=== PATIENT | female | born 1945 | race Caucasian/White ===

== ENCOUNTER → 2016-06-14 | Day surgery (SDC) | payer OTHER ==
[2016-05-13 10:06] VITALS: Ht 165.1 cm; Wt 116.4 kg
[~2016-06-14] VITALS: Ht 165.1 cm; Wt 116.4 kg
[~2016-06-14] MED LIST: 500ML BSS 0.3ML EPI 1:1000PF IRRIG ONE; ACETAMINOPHEN 325 MG TAB PO PRN; AMVISC PLUS 0.8ML SYRINGE INT OCU ONE; BSS FLUSH ONE; CITA40TA4 PO; CYCLOPENTOLATE HCL 1% OP SOLN PER DROP CHARGE OPL SCH; EYE DROP OPL; EpINEphrine INJ 1MG/ML AMP 1 MG/ML AMP ONE; GABA1CAP PO; GATIFLOXACIN OP SOLN PER DROP CHARGE OPL SCH; GLC/500 PO; KETOROLAC 0.5% OP SOLN PER DROP CHARGE OPL SCH; LACTATED RINGER'S 1000ML 500 ML IV SCH; LEVO100T7 PO; LIDOCAINE 3.5% OPH GEL PER APPLICATION CHARGE ONE; LIDOCAINE HCL 1% MPF 2 ML VIAL ONE; LISI20TA3 PO; MIDAZOLAM HCL 1 MG/ML 2ML VIAL ONE; MULT-506 PO; OCUCOAT 1 ML SOLN IO ONE; PHENYLEPHRINE HCL 10% OP SOLN PER DROP CHARGE OPL SCH; PHENYLEPHRINE HCL 2.5% OP SOLN PER DROP CHARGE OPL SCH; POVIDONE-IODINE OP SOLN 30 ML BTL ONE; PRED1SUS OPL; PROPARACAINE 0.5% OP SOLN PER DROP CHARGE OPL SCH; RISP1TAB68 PO; SIMV20TA2 PO; SULI150T PO; TOBRAMYCIN/DEXAMETHASONE OPH OINT PER APPLN CHARGE ONE; TROPICAMIDE 1% OP SOLN PER DROP CHARGE OPL SCH
[2016-06-14] MEDS: PHENYLEPHRINE HCL 2.5% OP SOLN PER DROP CHARGE OPL SCH ×2 (07:26→07:31)
[2016-06-14] MEDS: TROPICAMIDE 1% OP SOLN PER DROP CHARGE OPL SCH ×2 (07:27→07:32)
[2016-06-14] MEDS: CYCLOPENTOLATE HCL 1% OP SOLN PER DROP CHARGE OPL SCH ×2 (07:28→07:33)
[2016-06-14] MEDS: KETOROLAC 0.5% OP SOLN PER DROP CHARGE OPL SCH ×2 (07:29→07:34)
[2016-06-14] MEDS: GATIFLOXACIN OP SOLN PER DROP CHARGE OPL SCH ×2 (07:30→07:40)
--- NOTE | 2016-06-14 07:50 | History & Physical Bridge - [place] ---
H&P Re-Evaluation Bridge Note: I have examined the patient, reviewed the History & Physical and in the interval since the performance of the History & Physical I have noted the following changes of clinical significance: No changes noted
--- NOTE | 2016-06-14 08:28 | Discharge Instructions-SurgCtr ---
Discharge Instructions Date of Service Jun 14, 2016. Visit Reason for Visit: Cataract Left Eye Discharge Discharge Diagnosis / Problem: cataract Discharge Goals Goal(s): Improve function Medications Stopped Medications Name(s): Metformin stopped x 48 hrs. Activity Recommendations Activity Limitations: per Instructions/Follow-up section Anesthesia . Post Anesthesia Instructions: If you have had General Anesthesia or IV Sedation: * Do not drive today. * Resume driving when surgeon permits. * Do not make important decisions or sign legal documents today. * Call surgeon for: 1. Temperature elevations greater than 101 degrees F. 2. Uncontrollable pain. 3. Excessive bleeding. 4. Persistent nausea and vomiting. 5. Medication intolerance (nausea, vomiting or rash). * For nausea and vomiting use only clear liquids such as: tea, soda, bouillon until nausea subsides, then gradually increase diet as tolerated. * If you have any concerns or questions, call your surgeon's office. If physician is unavailable and it is an emergency, call 911 or go to the nearest emergency room. . Instructions / Follow-Up Instructions / Follow-Up ACTIVITY RECOMMENDATIONS: * No strenuous lifting, jogging or running for 4 days * No swimming or yard work for 1 week. * Limited bending is permitted, such as putting on shoes. RETURN TO SCHOOL/WORK: No work until seen by physician in office. MEDICATIONS: Resume previous medications unless instructed otherwise by your surgeon. This includes eye drops for glaucoma. Zymaxid/Gatifloxacin (rangel cap) - one drop every 2 hours until bedtime Nevanac/Ilevro/Prolensa/Ketorolac (diehl cap) - one drop every 4 hours until bedtime Prednisolone (white/pink cap, SHAKE WELL) - one drop every 2 hours until bedtime Starting tomorrow - all 3 drops every 4 hours until seen in the office Optive drops - as needed for discomfort SPECIAL CARE INSTRUCTIONS: * Wear eyeshield when sleeping, for four nights. * You may wear your own glasses or sunglasses while awake. * You may read or watch TV * You may shower and wash your face, but be gentle around the eye and pat dry. * Blurry vision and mild irritation are normal. * Call office if pain is more severe or vision becomes dark at . FOLLOW UP VISIT: Follow-up with Dr Arreola tomorrow. Diet Recommendations Home Diet: resume previous diet Procedures Procedures Performed: Left Cataract Phacoemulsification With Intraocular Lens Implant Pending Studies Studies pending at discharge: no Medical Emergencies . Who to Call and When: Medical Emergencies: If at any time you feel your situation is an emergency, please call 911 immediately. . Non-Emergent Contact Non-Emergency issues call your: Occupational Therapy Teacher . . "Provider Documentation" section prepared by Cesar Arreola.
--- NOTE | 2016-06-14 08:29 | [facility] Operative Report ---
Operative Report Date of Service Jun 14, 2016. Operative Report 1. PREOPERATIVE DIAGNOSIS: Cataract of the left eye. 2. POSTOPERATIVE DIAGNOSIS: Same. 3. PROCEDURE: Phacoemulsification with intraocular lens implantation of the left eye. SURGEON: Dr. Cesar Arreola. ANESTHESIA: Topical Lidocaine gel, 1% Non- Preserved intracameral Lidocaine, and monitored intravenous sedation. INDICATIONS FOR THE PROCEDURE: The patient is a 70 - year-old female with a history of cataract of the left eye causing significant visual impairment. The details of the proposed procedure were explained to the patient who asked appropriate questions and following discussion of all risks, benefits and alternatives agreed to have the procedure done. 4. OPERATION AND FINDINGS: DESCRIPTION OF PROCEDURE: After informed consent was obtained, the patient was brought to the Operating Room at the [facility]. The patient was placed in a supine position and then the left eye was prepped and draped in the usual sterile fashion for intraocular surgery. A drop of topical Lidocaine gel was placed in the operative eye. A wire lid speculum was then placed in the fornices. A corneal paracentesis was then created temporally. The Non-Preserved Lidocaine was then instilled into the anterior chamber. The anterior chamber was then pressurized with viscoelastic. A 2.0 mm clear corneal incision was then created temporally. A cystotome was inserted into the anterior chamber and used to create a tear in the anterior lens capsule. This capsular tear was then used to create a small flap and the flap was dragged in a counterclockwise direction in order to create a continuous curvilinear capsulorrhexis. Hydrodissection was accomplished with balanced salt solution. Phacoemulsification of the lens nucleus was then performed in a standard [id number] technique. The phaco time was 26 seconds with an average power of 12 %. The remaining cortical material was removed using irrigation aspiration. The capsular bag was then filled with viscoelastic. A Bausch & Lomb MI60L +20.0 diopters lens was then loaded into the injector and injected into the capsular bag. The remaining viscoelastic was removed with the irrigation aspiration handpiece. The wound was hydrated and then checked and found to be watertight. The intraocular pressure was checked and found to be adequate. The wire lid speculum was removed and the patient's face was cleaned and dried. TobraDex ointment was placed in the inferior fornix. The patient was discharged to the Recovery Room having tolerated the procedure well. There were no complications. The patient will be seen tomorrow in the office for follow-up. I attest to the content of the Intraoperative Record and any orders documented therein. Any exceptions are noted below.
[2016-06-14 08:32] VITALS: TEMP 36.5
--- NOTE | 2016-06-14 08:52 | Anesthesia Progress Nt - [facility] ---
Anesthesia Post Op Note Date & Time Jun 14, 2016 at 08:52 Vital Signs Pain Intensity: 0 Vital Signs Past 12 Hours Date Time Temp Pulse Resp B/P Pulse Ox O2 Delivery O2 Flow Rate FiO2 06/14/16 08:32 36.5 91 16 123/85 98 Room Air 06/14/16 07:05 36.6 114 20 133/84 95 Room Air Notes Mental Status: alert / awake / arousable, participated in evaluation Pt Amnestic to Procedure: No Nausea / Vomiting: adequately controlled Pain: adequately controlled Airway Patency, RR, SpO2: stable & adequate BP & HR: stable & adequate Hydration State: stable & adequate Anesthetic Complications: no major complications apparent Pt doing well. Recall as expected.
[2016-06-14 09:05] VITALS: BP 129/66; PULSE 77; O2SAT 96
== END | disposition home or self-care (01) ==
LOC: X.SURG 06:54
PROVIDERS: ATTEND Ophthalmology
DX: H26.9 Unspecified cataract (principal); E11.9 Type 2 diabetes mellitus without complications

== ENCOUNTER → 2016-07-19 | Day surgery (SDC) | payer OTHER ==
[2016-06-29 10:12] VITALS: Ht 165.1 cm; Wt 116.4 kg
[~2016-07-19] VITALS: Ht 165.1 cm; Wt 116.4 kg
[~2016-07-19] MED LIST changes: -CYCLOPENTOLATE HCL 1% OP SOLN PER DROP CHARGE OPL SCH; -GATIFLOXACIN OP SOLN PER DROP CHARGE OPL SCH; -KETOROLAC 0.5% OP SOLN PER DROP CHARGE OPL SCH; -PHENYLEPHRINE HCL 10% OP SOLN PER DROP CHARGE OPL SCH; +PHENYLEPHRINE HCL 10% OP SOLN PER DROP CHARGE OPR SCH; -PHENYLEPHRINE HCL 2.5% OP SOLN PER DROP CHARGE OPL SCH; -PROPARACAINE 0.5% OP SOLN PER DROP CHARGE OPL SCH; +PROPARACAINE 0.5% OP SOLN PER DROP CHARGE OPR SCH; -TROPICAMIDE 1% OP SOLN PER DROP CHARGE OPL SCH
[2016-07-19] MEDS: PHENYLEPHRINE HCL 2.5% OP SOLN PER DROP CHARGE OPR SCH ×2 (09:31→09:36)
[2016-07-19] MEDS: TROPICAMIDE 1% OP SOLN PER DROP CHARGE OPR SCH ×2 (09:32→09:37)
[2016-07-19] MEDS: KETOROLAC 0.5% OP SOLN PER DROP CHARGE OPR SCH ×2 (09:33→09:38)
[2016-07-19] MEDS: CYCLOPENTOLATE HCL 1% OP SOLN PER DROP CHARGE OPR SCH ×2 (09:33→09:37)
[2016-07-19] MEDS: GATIFLOXACIN OP SOLN PER DROP CHARGE OPR SCH ×2 (09:34→09:44)
--- NOTE | 2016-07-19 10:30 | Discharge Instructions-SurgCtr ---
Discharge Instructions Date of Service July 19, 2016. Visit Reason for Visit: Cataract Right Eye Discharge Discharge Diagnosis / Problem: cataract Discharge Goals Goal(s): Improve function Medications Stopped Medications Name(s): Metformin hekld for 48 HRs Activity Recommendations Activity Limitations: per Instructions/Follow-up section Anesthesia . Post Anesthesia Instructions: If you have had General Anesthesia or IV Sedation: * Do not drive today. * Resume driving when surgeon permits. * Do not make important decisions or sign legal documents today. * Call surgeon for: 1. Temperature elevations greater than 101 degrees F. 2. Uncontrollable pain. 3. Excessive bleeding. 4. Persistent nausea and vomiting. 5. Medication intolerance (nausea, vomiting or rash). * For nausea and vomiting use only clear liquids such as: tea, soda, bouillon until nausea subsides, then gradually increase diet as tolerated. * If you have any concerns or questions, call your surgeon's office. If physician is unavailable and it is an emergency, call 911 or go to the nearest emergency room. . Instructions / Follow-Up Instructions / Follow-Up ACTIVITY RECOMMENDATIONS: * No strenuous lifting, jogging or running for 4 days * No swimming or yard work for 1 week. * Limited bending is permitted, such as putting on shoes. RETURN TO SCHOOL/WORK: No work until seen by physician in office. MEDICATIONS: Resume previous medications unless instructed otherwise by your surgeon. This includes eye drops for glaucoma. Zymaxid/Gatifloxacin (rangel cap) - one drop every 2 hours until bedtime Nevanac/Ilevro/Prolensa/Ketorolac (diehl cap) - one drop every 4 hours until bedtime Prednisolone (white/pink cap, SHAKE WELL) - one drop every 2 hours until bedtime Starting tomorrow - all 3 drops every 4 hours until seen in the office Optive drops - as needed for discomfort SPECIAL CARE INSTRUCTIONS: * Wear eyeshield when sleeping, for four nights. * You may wear your own glasses or sunglasses while awake. * You may read or watch TV * You may shower and wash your face, but be gentle around the eye and pat dry. * Blurry vision and mild irritation are normal. * Call office if pain is more severe or vision becomes dark at . FOLLOW UP VISIT: Follow-up with Dr Arreola tomorrow. Diet Recommendations Home Diet: resume previous diet Procedures Procedures Performed: Right Cataract Phacoemulsification With Intraocular Lens Implant Pending Studies Studies pending at discharge: no Medical Emergencies . Who to Call and When: Medical Emergencies: If at any time you feel your situation is an emergency, please call 911 immediately. . Non-Emergent Contact Non-Emergency issues call your: Biological Science Technician Fish . . "Provider Documentation" section prepared by Cesar Arreola. .
--- NOTE | 2016-07-19 10:31 | [facility] Operative Report ---
Operative Report Date of Service July 19, 2016. Operative Report 1. PREOPERATIVE DIAGNOSIS: Cataract of the right eye. 2. POSTOPERATIVE DIAGNOSIS: Same. 3. PROCEDURE: Phacoemulsification with intraocular lens implantation of the right eye. SURGEON: Dr. Cesar Arreola. ANESTHESIA: Topical Lidocaine gel, 1% Non- Preserved intracameral Lidocaine, and monitored intravenous sedation. INDICATIONS FOR THE PROCEDURE: The patient is a 71 - year-old female with a history of cataract of the right eye causing significant visual impairment. The details of the proposed procedure were explained to the patient who asked appropriate questions and following discussion of all risks, benefits and alternatives agreed to have the procedure done. 4. OPERATION AND FINDINGS: DESCRIPTION OF PROCEDURE: After informed consent was obtained, the patient was brought to the Operating Room at the [facility]. The patient was placed in a supine position and then the right eye was prepped and draped in the usual sterile fashion for intraocular surgery. A drop of topical Lidocaine gel was placed in the operative eye. A wire lid speculum was then placed in the fornices. A corneal paracentesis was then created temporally. The Non-Preserved Lidocaine was then instilled into the anterior chamber. The anterior chamber was then pressurized with viscoelastic. A 2.0 mm clear corneal incision was then created temporally. A cystotome was inserted into the anterior chamber and used to create a tear in the anterior lens capsule. This capsular tear was then used to create a small flap and the flap was dragged in a counterclockwise direction in order to create a continuous curvilinear capsulorrhexis. Hydrodissection was accomplished with balanced salt solution. Phacoemulsification of the lens nucleus was then performed in a standard efhwrr-pff-weowyeh technique. The phaco time was 24 seconds with an average power of 10 %. The remaining cortical material was removed using irrigation aspiration. The capsular bag was then filled with viscoelastic. A Bausch & Lomb MI60L +19.5 diopters lens was then loaded into the injector and injected into the capsular bag. The remaining viscoelastic was removed with the irrigation aspiration handpiece. The wound was hydrated and then checked and found to be watertight. The intraocular pressure was checked and found to be adequate. The wire lid speculum was removed and the patient's face was cleaned and dried. TobraDex ointment was placed in the inferior fornix. The patient was discharged to the Recovery Room having tolerated the procedure well. There were no complications. The patient will be seen tomorrow in the office for follow-up. I attest to the content of the Intraoperative Record and any orders documented therein. Any exceptions are noted below.
--- NOTE | 2016-07-19 10:42 | Anesthesia Progress Nt - [facility] ---
Anesthesia Post Op Note Date & Time July 19, 2016 at 10:43 Vital Signs Pain Intensity: 0 Vital Signs Past 12 Hours Date Time Temp Pulse Resp B/P Pulse Ox O2 Delivery O2 Flow Rate FiO2 07/19/16 10:31 36.9 76 16 117/76 96 Room Air 07/19/16 09:10 36.3 104 20 167/93 96 Room Air Notes Mental Status: alert / awake / arousable, participated in evaluation Pt Amnestic to Procedure: No (recall as expected) Nausea / Vomiting: adequately controlled Pain: adequately controlled Airway Patency, RR, SpO2: stable & adequate BP & HR: stable & adequate Hydration State: stable & adequate Anesthetic Complications: no major complications apparent Pt doing well.
[2016-07-19 10:56] VITALS: BP 134/83; PULSE 65; O2SAT 98
== END | disposition home or self-care (01) ==
LOC: X.SURG 08:43
PROVIDERS: ATTEND Ophthalmology
DX: H26.9 Unspecified cataract (principal); E11.9 Type 2 diabetes mellitus without complications

== ENCOUNTER → 2016-08-12 | Outpatient (CLI) | payer OTHER ==
[~2016-08-12] MED LIST changes: -500ML BSS 0.3ML EPI 1:1000PF IRRIG ONE; -ACETAMINOPHEN 325 MG TAB PO PRN; -AMVISC PLUS 0.8ML SYRINGE INT OCU ONE; -BSS FLUSH ONE; -EpINEphrine INJ 1MG/ML AMP 1 MG/ML AMP ONE; -LACTATED RINGER'S 1000ML 500 ML IV SCH; -LIDOCAINE 3.5% OPH GEL PER APPLICATION CHARGE ONE; -LIDOCAINE HCL 1% MPF 2 ML VIAL ONE; -MIDAZOLAM HCL 1 MG/ML 2ML VIAL ONE; -OCUCOAT 1 ML SOLN IO ONE; -PHENYLEPHRINE HCL 10% OP SOLN PER DROP CHARGE OPR SCH; -POVIDONE-IODINE OP SOLN 30 ML BTL ONE; -PROPARACAINE 0.5% OP SOLN PER DROP CHARGE OPR SCH; -TOBRAMYCIN/DEXAMETHASONE OPH OINT PER APPLN CHARGE ONE
[2016-08-12 12:20] LABS: HEMATOCRIT 43.1 % (37-47); MEAN CELL VOLUME 94.9 fL (80-100); MEAN CORPUSCULAR HEMOGLOBIN 30.2 pg (25-34); MEAN CORPUSCULAR HGB CONC 31.8 g/dl (32-36); MEAN PLATELET VOLUME 10.7 fL (7.4-10.4); PLATELET COUNT 333 K/uL (130-400); RED BLOOD COUNT 4.54 M/uL (4.2-5.4); WHITE BLOOD COUNT 8.17 K/uL (4.8-10.8)
[2016-08-12 12:26] LABS: ESTIMATED AVERAGE GLUCOSE 140 mg/dl; HA1C FLAG Normal (Normal)
[2016-08-12 12:37] LABS: BLOOD UREA NITROGEN 23 mg/dl (7-18); BUN/CREATININE RATIO 20.5 (10-20); CARBON DIOXIDE 24 mmol/L (21-32); CHLORIDE 104 mmol/L (98-107); GLUCOSE 114 mg/dl (70-99); POTASSIUM 4.3 mmol/L (3.5-5.1); SODIUM 139 mmol/L (136-145)
[2016-08-12 12:41] LABS: CHOLESTEROL/HDL RATIO 3.3
[2016-08-12 12:44] LABS: CALCIUM 9.4 mg/dl (8.5-10.1)
[2016-08-12 12:47] LABS: THYROID STIMULATING HORMONE 2.43 uIu/ml (0.300-4.500); URIC ACID 8.3 mg/dl (2.6-7.2)
== END | disposition home or self-care (01) ==
LOC: C.LAB 10:30
PROVIDERS: ATTEND Psychiatry & Neurology Psychiatry
DX: Z79.899 Other long term (current) drug therapy (principal); I10 Essential (primary) hypertension; E03.9 Hypothyroidism, unspecified; E11.9 Type 2 diabetes mellitus without complications; M10.9 Gout, unspecified; E78.5 Hyperlipidemia, unspecified; M19.90 Unspecified osteoarthritis, unspecified site

== ENCOUNTER → 2017-01-23 | Outpatient (CLI) | payer OTHER ==
--- NOTE | 2017-01-24 07:43 | MAMMOGRAPHY REPORT ---
BILATERAL DIGITAL SCREENING MAMMOGRAM WITH CAD: 01/23/2017 CLINICAL HISTORY: Routine screening. Patient has no complaints. TECHNIQUE: Bilateral CC, MLO and repeat right MLO views were obtained. Current study was also evalua sourav with a Computer Aided Detection (CAD) system. COMPARISON: Comparison is made to exams dated: 01/22/2016 mammogram, 01/20/2015 mammogram, 01/14/2014 mammogram, 01/11/2013 mammogram, 12/20/2011 mammogram, and 11/11/2010 mammogram - [facility]. BREAST COMPOSITION: There are scattered areas of fibroglandular density in both breasts. FINDINGS: The parenchymal pattern is unchanged. No developing mass, architectural distortion or clus ter of suspicious microcalcifications is seen in either breast. IMPRESSION: ACR BI-RADS CATEGORY 2: BENIGN There is no mammographic evidence of malignancy. A 1 year screening mammogram is recommended. The pa tient will receive written notification of the results. Approximately 10% of breast cancers are not detected with mammography. A negative mammographic report should not delay biopsy if a clinically suggestive mass is present. Shelia Cardoza M.D. ay/:01/23/2017 15:30:22 Meteorological Observer: Christi VALDEZR, M, [facility] letter sent: Normal 1/2 BI-RADS Code: ACR BI-RADS Category 2: Benign
== END | disposition home or self-care (01) ==
LOC: C.MAMM 11:15
PROVIDERS: ATTEND Internal Medicine Geriatric Medicine
DX: Z12.31 Encounter for screening mammogram for malignant neoplasm of breast (principal)

== ENCOUNTER 2021-08-14 20:11 | Inpatient (IN) ==
--- NOTE | 2021-08-14 20:57 | Emergency Department Note ---
Impression & Plan Generalized weakness, Hypomagnesemia ED Provider Note Name: ANTONETTE BOWMAN Age: 76 Sex: F Arrives Via: Ambulance Informant: Patient, EMS, nursing ED Provider: Kevin Remy MD Chief Complaint: Weakness Impression: As per impressions above Medical Decision Makin-year-old female with extensive past medical history who arrives following sliding off of her couch and unable to get up. Apparently she has been gradually worsening for quite some time. Patient is somewhat unkempt at this point slightly confused. Apparently she was quite agitated and anxious when EMS arrived and she was actually given Ativan which explain some of the confusion. Regardless given the fall I did think that getting a CT of the head is reasonable which is fortunately negative. Extensive work-up in mild WBC elevation though no fever and no clear evidence of infection. There is nitrates in her urine but this is a clean-catch and I do not see any clear evidence that it is infected. The rest of her laboratory work-up is remarkable for significantly low magnesium. This may be part of the reason that she is so weak. I suspect there is an element of malnutrition as well. I discussed the case at length with hospitalist who will evaluate and bring her in for further management. Prior Medical Record and Triage/Nursing Notes reviewed by Me Additional history obtained from chart Differentials:Infection, dehydration, metabolic abnormality, hypo/hyperglycemia, electrolyte disturbance, anemia, hypoxia, cardiac sources, intracerebral event, toxicologic, neurologic, as well as other pathologies. Vital Signs: reviewed and remarkable for no significant abnormalities Interventions: Normal saline bolus, magnesium IV Labs:Reviewed and remarkable for hypomagnesemia Imaging:CT of the head no acute findings per radiology, 1 view chest x-ray no acute findings EKG:Per My Interpretation: Indication weakness: NSR 88 bpm, qtc 454. No Ectopy. No Ischemia. Compared to EKG 05/16/06, no significant changes. Consults:Dr. Schwartz of [facility] hospitalist service Plan: Disposition:Hospitalization. Condition: Good History of Present Illness:76-year-old female arrives for evaluation of weakness. Patient was sitting on her couch when she slid off it. 911 was called. She notes she got very anxious and worked up. Per EMS she was severely anxious on arrival and given Ativan. In route symptoms resolved. Patient states she feels much better. She denies any chest pain, shortness of breath, abdominal pain, back pain, urinary symptoms, leg swelling, rashes, fevers, chills, headache, neck pain or any other signs or symptoms. She took no medications prior to arrival other than the Ativan that was given to her. Patient states she feels safe at home and lives with her [id number]. She notes sometimes she cooks and oftentimes her [id number] does. She says she feels like she can live there without problems. She admits that she got very worked up today. She denies any other concerning findings. ROS: See above HPI for pertinent positives & negatives. A total of 10 systems reviewed and were otherwise negative. Past Medical History:See Below Past Surgical History:See Below Family History:See Below Social History:See Below Home Medications:See Below Allergies:nkda Vitals:Blood Pressure: 127/75, Pulse 94, RR 16, T 36.5C, O2 99% on RA Physical Exam: GENERAL: Patient is well appearing and in no acute distress. Mildly dehydrated appearing EYES: No scleral icterus, unremarkable pupils. ENT: Mucous membranes moist, no nasal congestion. NECK: No masses appreciated, nomeningismus, trachea is midline. RESPIRATORY: No dyspnea. Clear to auscultation and equal bilaterally. No wheeze, no rhonchi. CARDIOVASCULAR: Regular rate and rhythm.No murmurs, rubs, gallops appreciated. GASTROINTESTINAL: Abdomen soft, non-tender, no peritonitis.Bowel sounds positive.No masses appreciated. BACK: No midline tenderness, no CVA tenderness EXTREMITIES: Normal motion all extremities, no cyanosis, no edema. NEUROLOGIC: Alert and oriented, mildly somnolent no acute motor or sensory deficits, no focal weakness, cranial nerves grossly intact. SKIN: No rash, no jaundice, no diaphoresis. PSYCH: Appropriate GCS: 15 ED Course: Times/Reassessments: Patient agreeable to hospitalization breathing comfortably in no distress. Mild confusion slowly resolving Kevin Remy MD Past Med/Surg History Medical History Carpal tunnel syndrome Chronic kidney disease Depression Dyslipidemia Gastroesophageal reflux disease Gout Hypertension Hypothyroidism Joint pain, knee Osteoarthritis Type 2 diabetes mellitus Surgical History Hx of cholecystectomy Family History Mother Cervical cancer Uncle Myocardial infarction Other No significant family history Denies family history of Ovarian cancer Prostate cancer Breast cancer Lung cancer Colorectal cancer Social History Smoking Status: Unknown if ever smoked Second Hand Exposure: No; Hx Substance Use: No Preferred Language: Syriac Communication Ability: Effective Visual Impairment: Limited Hearing Ability: Normal 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 lives w/ sister, Merle Small current occupational status: retired How many Children do You have: 0 Feels Safe at Home: Yes Childhood Exposure to Second-Hand Smoke: Yes caffeine: Yes Dental Care, Regularly: Yes Physical Activity Frequency: Does not Exercise Seatbelt Use: always Sunscreen Use: No Assistive Devices: Walker Allergies Allergies Allergy/AdvReac Type Severity Reaction Status Date / Time No Known Allergies Allergy Unknown Verified 08/14/21 21:21 Home Meds Home Medications Medication Instructions Recorded Confirmed citalopram 20 mg tablet 30 mg PO HS tab 10/24/18 08/14/21 multivitamin (Daily Multi-Vitamin) 1 tab PO DAILY 10/24/18 08/14/21 risperidone 1 mg tablet 1 mg PO HS tab 10/24/18 08/14/21 Previous Rx's Medication Instructions Recorded gabapentin 300 mg capsule 300 mg PO DAILY #30 cap 07/30/19 lisinopril 20 mg tablet 20 mg PO DAILY #90 tab 11/09/20 metformin 500 mg tablet 750 mg PO BID #270 tab 03/15/21 levothyroxine 100 mcg tablet 100 mcg PO DAILY #90 tab 05/03/21 simvastatin 20 mg tablet 20 mg PO DAILY #90 tab 07/28/21 Results & Data (ED) Vital Signs Vital Signs - 24 hr 08/14/21 20:32 08/14/21 21:00 08/14/21 22:32 Temperature 36.5 C Temperature Source Axillary Pulse Rate 94 H 85 84 Pulse Rate from SpO2 Sensor 86 Respiratory Rate 27 H 22 27 H Respiratory Effort / Characteristics Spontaneous Blood Pressure 127/75 165/79 H Blood Pressure Mean 92 107 Pulse Oximetry 99 96 98 Oxygen Delivery Method Room Air Room Air Room Air Sepsis New/Unexplained Change in Mental Status N/A Sepsis Action Taken by Nursing No Action Required Laboratory Data Result diagrams: 08/15/21 05:42 08/15/21 05:42 Lab Results 08/14/21 08/14/21 08/14/21 Range/Units 21:06 21:06 21:06 WBC 14.69 H (4.8-10.8) K/uL RBC 3.84 L (4.2-5.4) M/uL Hgb 12.2 (12.0-16.0) g/dL Hct 35.6 L (37-47) % MCV 92.7 (80-100) fL MCH 31.8 (25-34) pg MCHC 34.3 (32-36) g/dL RDW Std Deviation 47.2 H (36.4-46.3) fL RDW Coeff of [place] 13.8 (11.5-14.5) % Plt Count 391 (130-400) K/uL MPV 11.6 H (7.4-10.4) fL Immature Gran % (Auto) 0.3 % Neut % (Auto) 76.6 % Lymph % (Auto) 14.6 % [place] % (Auto) 7.9 % Eos % (Auto) 0.5 % Baso % (Auto) 0.1 % Neut # (Auto) 11.25 H (1.4-6.5) K/uL Lymph # (Auto) 2.14 (1.2-3.4) K/uL [place] # (Auto) 1.16 H (0.11-0.59) K/uL Eos # (Auto) 0.07 (0-0.5) K/uL Baso # (Auto) 0.02 (0-0.2) K/uL Immature Gran # (Auto) 0.05 H (0.00-0.02) K/uL Sodium 136 (136-145) mmol/L Potassium 2.8 L (3.5-5.1) mmol/L Chloride 102 (98-107) mmol/L Carbon Dioxide 19 L (21-32) mmol/L Anion Gap 15 H (3-11) BUN 14 (6-23) mg/dl Creatinine 1.07 (0.6-1.2) mg/dl Est Cr Clr Drug Dosing 54.2 ml/min Est GFR ( Amer) 59.2 ml/min Est GFR (Non-Af Amer) 51.1 ml/min BUN/Creatinine Ratio 13.1 (10-20) Glucose 148 H (70-99(Fasting)) mg/dl Calcium 7.7 L (8.5-10.1) mg/dl Phosphorus (2.5-4.9) mg/dl Magnesium 0.9 L* (1.7-2.4) mg/dl Total Bilirubin 1.3 H (0.2-1.0) mg/dl Direct Bilirubin 0.3 H (0-0.2) mg/dl AST 52 H (13-39) U/L ALT 17 (7-52) U/L Alkaline Phosphatase 76 (34-104) U/L Troponin I High Sens 15.2 H (0-14) pg/ml Total Protein 6.1 (6.0-8.3) gm/dl Albumin 3.1 L (3.4-5.0) gm/dl TSH 7.318 H (0.300-4.500) uIu/ml Urine Color Urine Appearance (Clear) Urine pH (4.5-7.5) Ur Specific [place] (1.000-1.030) Urine Protein (Negative) Urine Glucose (UA) (Negative) Urine Ketones (Negative) Urine Blood (Negative) Urine Nitrite (Negative) Urine Bilirubin (Negative) Urine Urobilinogen (Negative) Ur Leukocyte Esterase (Negative) Urine WBC (Auto) (0-5) /hpf Urine RBC (Auto) (0-4) /hpf U Hyaline Cast (Auto) (0-5) /lpf U Epithel Cells (Auto) (0-5) /lpf Urine Bacteria (Auto) (Negative) SARS-CoV-2, RNA, NAAT (NEGATIVE) 08/14/21 08/14/21 08/14/21 Range/Units 21:06 21:55 22:59 WBC (4.8-10.8) K/uL RBC (4.2-5.4) M/uL Hgb (12.0-16.0) g/dL Hct (37-47) % MCV (80-100) fL MCH (25-34) pg MCHC (32-36) g/dL RDW Std Deviation (36.4-46.3) fL RDW Coeff of [place] (11.5-14.5) % Plt Count (130-400) K/uL MPV (7.4-10.4) fL Immature Gran % (Auto) % Neut % (Auto) % Lymph % (Auto) % [place] % (Auto) % Eos % (Auto) % Baso % (Auto) % Neut # (Auto) (1.4-6.5) K/uL Lymph # (Auto) (1.2-3.4) K/uL [place] # (Auto) (0.11-0.59) K/uL Eos # (Auto) (0-0.5) K/uL Baso # (Auto) (0-0.2) K/uL Immature Gran # (Auto) (0.00-0.02) K/uL Sodium (136-145) mmol/L Potassium (3.5-5.1) mmol/L Chloride (98-107) mmol/L Carbon Dioxide (21-32) mmol/L Anion Gap (3-11) BUN (6-23) mg/dl Creatinine (0.6-1.2) mg/dl Est Cr Clr Drug Dosing ml/min Est GFR ( Amer) ml/min Est GFR (Non-Af Amer) ml/min BUN/Creatinine Ratio (10-20) Glucose (70-99(Fasting)) mg/dl Calcium (8.5-10.1) mg/dl Phosphorus 1.7 L (2.5-4.9) mg/dl Magnesium (1.7-2.4) mg/dl Total Bilirubin (0.2-1.0) mg/dl Direct Bilirubin (0-0.2) mg/dl AST (13-39) U/L ALT (7-52) U/L Alkaline Phosphatase (34-104) U/L Troponin I High Sens (0-14) pg/ml Total Protein (6.0-8.3) gm/dl Albumin (3.4-5.0) gm/dl TSH (0.300-4.500) uIu/ml Urine Color [place] Urine Appearance Clear (Clear) Urine pH 5.0 (4.5-7.5) Ur Specific [place] 1.029 (1.000-1.030) Urine Protein 1+ H (Negative) Urine Glucose (UA) Negative (Negative) Urine Ketones Negative (Negative) Urine Blood Negative (Negative) Urine Nitrite Positive A (Negative) Urine Bilirubin 1+ H (Negative) Urine Urobilinogen Negative (Negative) Ur Leukocyte Esterase Trace H (Negative) Urine WBC (Auto) 1-5 (0-5) /hpf Urine RBC (Auto) 5-10 H (0-4) /hpf U Hyaline Cast (Auto) 0 (0-5) /lpf U Epithel Cells (Auto) 5-10 H (0-5) /lpf Urine Bacteria (Auto) Negative (Negative) SARS-CoV-2, RNA, NAAT NEGATIVE (NEGATIVE) Administered Medications Calcium Carbonate (Calcium Carbonate 1,250 Mg/5 Ml Udc) 1,250 mg PO BID [facility] Stop: 09/14/21 08:59 Last Admin: 08/15/21 08:44 Dose: 1,250 mg Documented by: [id number] Cyanocobalamin (Cyanocobalamin 1000 Mcg/Ml Vial) 1,000 mcg IM QAM [facility] Stop: 08/19/21 09:01 Last Admin: 08/15/21 10:33 Dose: 1,000 mcg Documented by: [id number] Enoxaparin Sodium (Enoxaparin Inj 40 Mg/0.4 Ml Syr) 40 mg SQ QAM [facility] Stop: 09/14/21 09:44 Last Admin: 08/15/21 10:33 Dose: 40 mg Documented by: [id number] Gabapentin (Gabapentin 300 Mg Cap) 300 mg PO DAILY [facility] Stop: 09/14/21 08:59 Last Admin: 08/15/21 08:10 Dose: 300 mg Documented by: [id number] Ceftriaxone Sodium 2,000 mg/ (Dextrose) 70 mls @ 100 mls/hr IV Q24H [facility]; Protocol Stop: 08/20/21 01:59 Last Infusion: 08/15/21 02:50 Dose: 0 mls/hr Documented by: [id number] Admin: 08/15/21 02:08 Dose: 100 mls/hr Documented by: [id number] Magnesium Sulfate 6 gm/ (Lactated Ringer's) 1,012 mls @ 80 mls/hr IV .[id number] [facility] Stop: 08/15/21 14:38 Last Admin: 08/15/21 02:08 Dose: 80 mls/hr Documented by: [id number] Insulin Aspart (Insulin Aspart Per Unit) 0 units SC ACHS [facility] Stop: 09/14/21 07:29 Last Admin: 08/15/21 12:43 Dose: 2 units Documented by: [id number] Cosigned by: [id number] Admin: 08/15/21 08:09 Dose: 3 units Documented by: [id number] Cosigned by: [id number] Levothyroxine Sodium (Levothyroxine Sodium 100 Mcg Tablet) 100 mcg PO DAILYBB [facility] Stop: 09/14/21 06:29 Last Admin: 08/15/21 05:48 Dose: 100 mcg Documented by: [id number] Lisinopril (Lisinopril 20 Mg Tab) 20 mg PO DAILY [facility] Stop: 09/14/21 08:59 Last Admin: 08/15/21 08:10 Dose: 20 mg Documented by: [id number] Simvastatin (Simvastatin 20 Mg Tab) 20 mg PO DAILY [facility] Stop: 09/14/21 08:59 Last Admin: 08/15/21 08:10 Dose: 20 mg Documented by: [id number] Discontinued Medications Magnesium Sulfate/Dextrose (Magnesium Sulfate / D5w) 1 gm in 100 mls @ 100 mls/hr IV NOW STA Stop: 08/14/21 23:45 Last Infusion: 08/15/21 00:04 Dose: 0 mls/hr Documented by: [id number] Admin: 08/14/21 23:03 Dose: 100 mls/hr Documented by: [id number] Sodium Phosphate 12 mmol/ (Sodium Chloride) 254 mls @ 88 mls/hr IV ONE ONE Stop: 08/15/21 04:53 Last Infusion: 08/15/21 05:49 Dose: 0 mls/hr Documented by: [id number] Admin: 08/15/21 02:50 Dose: 88 mls/hr Documented by: [id number] Lorazepam (Lorazepam 0.5 Mg Tab) 0.5 mg PO NOW STA Stop: 08/15/21 07:53 Last Admin: 08/15/21 08:09 Dose: 0.5 mg Documented by: [id number] Potassium Chloride (Potassium Chloride Crtab 20 Meq Tabcr) 60 meq PO NOW STA Stop: 08/14/21 23:49 Last Admin: 08/14/21 23:52 Dose: 60 meq Documented by: [id number] Potassium Chloride (Potassium Chloride Crtab 20 Meq Tabcr) 40 meq PO NOW STA Stop: 08/15/21 07:49 Last Admin: 08/15/21 08:09 Dose: 40 meq Documented by: [id number] Discharge Plan Visit Data Chief Complaint: Fall Stated Complaint: Fall, Anxiety ED Provider: Kevin Remy Discharge Problem: Generalized weakness, Hypomagnesemia Patient Disposition: Admitted As Inpatient Discharge Instructions Interventions: ED Discharge Assessment Last Done: 08/15/21 00:45
[2021-08-14 21:42] LABS: Basophils # (auto) 0.02 K/uL (0-0.2); Basophils % (auto) 0.1 %; Eosinophils # (auto) 0.07 K/uL (0-0.5); Eosinophils % (auto) 0.5 %; Hematocrit (blood only) 35.6 % (37-47); Hemoglobin 12.2 g/dL (12.0-16.0); Immature Granulocytes # (auto) 0.05 K/uL (0.00-0.02); Immature Granulocytes % (auto) 0.3 %; Lymphocytes # (auto) 2.14 K/uL (1.2-3.4); Lymphocytes % (auto) 14.6 %; Mean Corpuscular Hemoglobin 31.8 pg (25-34); Mean Corpuscular Hgb Conc 34.3 g/dL (32-36); Mean Corpuscular Volume 92.7 fL (80-100); Mean Platelet Volume 11.6 fL (7.4-10.4); Monocytes # (auto) 1.16 K/uL (0.11-0.59); Monocytes % (auto) 7.9 %; Neutrophils # (auto) 11.25 K/uL (1.4-6.5); Neutrophils % (auto) 76.6 %; Platelet Count 391 K/uL (130-400); RDW Coefficient of Variation 13.8 % (11.5-14.5); RDW Standard Deviation 47.2 fL (36.4-46.3); Red Blood Count 3.84 M/uL (4.2-5.4); White Blood Count 14.69 K/uL (4.8-10.8)
[2021-08-14 21:50] LABS: Troponin I High Sensitivity 15.2 pg/ml (0-14)
--- NOTE | 2021-08-14 21:53 | CT Scan Report ---
CT head/brain wo con CLINICAL HISTORY: 76 years-old Female with fall, weakness. Acute head injury status post fall with w eakness. TECHNIQUE: Multiple axial CT images of the head were obtained without contrast. A dose lowering tech nique was utilized adhering to the principles of ALARA. CT DOSE: 614.27 mGy.cm COMPARISON: None. FINDINGS: No acute intracranial hemorrhage, midline shift, intracranial mass, hydrocephalus, territorial ischem ia or abnormal extra-axial collection. Calcifications of the falx cerebri. Involutional changes with white matter hypodensities suggestive of chronic microvascular ischemic disease. Mildly motion degrad ed exam. The calvarium is intact. Prior bilateral lens repair. The paranasal sinuses, mastoid air cells, and m iddle ear cavities are clear. IMPRESSION: No acute intracranial abnormality or calvarial fracture. ACT 112: Negative or not required by law. The above report was generated using voice recognition software. It may contain grammatical, syntax o r spelling errors. Electronically signed by: Bernardo Malagon M.D. 08/14/2021 9:51 PM
--- NOTE | 2021-08-14 21:57 | XRay Report ---
XR chest 1V portable HISTORY: 76 years-old Female fall, weakness acute weakness with fall COMPARISON: Chest radiographs 05/16/2006 TECHNIQUE: Portable AP view of the chest FINDINGS: The cardiomediastinal and hilar silhouettes are within normal limits. No pneumothorax, pleural effusi on, airspace consolidation or overt pulmonary edema. Degenerative changes of the shoulders and spine. IMPRESSION: No acute process. ACT 112: Negative or not required by law. The above report was generated using voice recognition software. It may contain grammatical, syntax o r spelling errors. Electronically signed by: Bernardo Malagon M.D. 08/14/2021 9:56 PM
[2021-08-14 22:07] LABS: BUN Creatinine Ratio 13.1 (10-20); Calcium 7.7 mg/dl (8.5-10.1); Creatinine Clr Calc Pharmacy 54.2 ml/min; Est GFR (African American) 59.2 ml/min; Est GFR (Non-African American) 51.1 ml/min; Potassium 2.8 mmol/L (3.5-5.1)
[2021-08-14 22:10] LABS: Appearance Urine Clear (Clear); Bacteria Urine Automated Negative (Negative); Blood Urine Negative (Negative); Cast Urine Automated 0 /lpf (0-5); Color Urine Orange; Glucose Urine UA Negative (Negative); Ketones Urine Negative (Negative); Leukocyte Esterase Urine Trace (Negative); Nitrite Urine Positive (Negative); Protein Urine 1+ (Negative); Specific Gravity Urine 1.029 (1.000-1.030); Urobilinogen Urine Negative (Negative)
[2021-08-14 22:28] LABS: Albumin Level 3.1 gm/dl (3.4-5.0); Bilirubin Direct 0.3 mg/dl (0-0.2); Bilirubin,Total 1.3 mg/dl (0.2-1.0); Magnesium 0.9 mg/dl (1.7-2.4); Total Protein 6.1 gm/dl (6.0-8.3)
[2021-08-14 22:41] LABS: Bilirubin Urine 1+ (Negative)
[2021-08-14] MEDS ORDERED: MAGNESIUM SULFATE / D5W 1 GM/100 ML BAG IV STA (22:46)
[2021-08-14] MEDS ORDERED: POTASSIUM CHLORIDE CRTAB 20 MEQ TABCR PO STA (23:48)
--- NOTE | 2021-08-14 23:50 | History & Physical Report ---
Date of Service August 14, 2021 Assessment & Plan (1) Electrolyte abnormality: Plan: 76yo female with history of CKD, HTN, DM, Gout and Hypothyroidism presenting from home with generalized weakness. Found to have severe hypomagnesemia with Mg=0.9. Also with hypokalemia and hypophosphatemia with K=2.8 and PO4=1.7. Patient reports that she is eating well, although family member at bedside disagrees with this statement. She denies vomiting, diarrhea. She is not pre sently on PPI medication. -Admit to medical with telemetry -Electrolyte repletion - Mg 1gm given in ER. Will continue repletion with 6gm Mg in 1L LR to be given at 80mL/hr. Repeat chemistry and Mg in AM - KCl 60mEq po given in ER. Repeat chemistry in AM - Neutraphos x 12mMol with repeat PO4 in AM - Additional repletion per AM labs -Check pre-albumin in AM for nutritional assessment -PT/OT evaluation (2) Memory change: Plan: Patient with report of memory change discussed during prior PCP visits. Thought possibly to be secondary to underlying depression. She has a mini cognitive test report from 07/28/20 score 0/5. Possibly underlying cognitive impairment or dementia. Uncertain of baseline functional status. Will treat electrolyte derangements, UTI then reassess cognitive function -Continue Risperidone 1mg po qHS -Frequent orientation, delirium prevention strategies (3) UTI (urinary tract infection): Plan: Possible UTI, nitrite positive. Patient afebrile, HD stable, nontoxic -Ceftriaxone 1gm IV daily -Urine culture ordered (4) Type 2 diabetes mellitus: Plan: Blood sugar =148. Overall well controlled - last [id number]=2.3 on 07/08/20 -Hold Metformin while inpatient -ISS. Goal blood sugar 100 - 140 (5) Hypothyroidism: Plan: Elevated TSH. Uncertain medication adherence -Continue Synthroid 100mcg daily (6) Hypertension: Plan: Chronic. Elevated at 165/79 -Continue Lisinopril -Continue to monitor (7) Dyslipidemia: Plan: Chronic. -Continue Simvastatin 20mg po daily (8) Depression: Plan: Chronic -Continue Citalopram Plan: F/E/N - Electrolyte repletion as above, CC diet Ppx - SCDs Code - Full per discussion with patient Dispo - Admit to medical with telemetry History of Present Illness Chief Complaint: weakness Primary Care Provider: Drake Chilel DO Kristine Novoa is a 76yo female with history of HTN, HLP, GERD, DM and Hypothyroidism with weakness. Patient is a poor historian and doesn't full recollect the events prior to arrival. She lives with her sister who assists her with medications and ADLs. Patient had a fall yesterday secondary to some weakness. Today she fell in her living room and was unable to get up due to weakness. Her cousin had to assist her in getting up. She then became very anxious. 911 was called. In the ER patient afebrile, HD stable, tachypneic. She has no complaints at this time. Denies pain, chest pain, cough, abdominal pain, nausea, vomiting, diarrhea or constipation. She states that she does have some shortness of breath at times. Also complaining of pain in the right great toe. ER Course: Mag x 1gm, KCL x 60mEq Allergies Allergy/AdvReac Type Severity Reaction Status Date / Time No Known Allergies Allergy Unknown Verified 08/14/21 21:21 Home Medications Medication Instructions Recorded Confirmed Type citalopram 20 mg tablet 30 mg PO HS tab 10/24/18 08/14/21 History multivitamin (Daily Multi-Vitamin) 1 tab PO DAILY 10/24/18 08/14/21 History risperidone 1 mg tablet 1 mg PO HS tab 10/24/18 08/14/21 History gabapentin 300 mg capsule 300 mg PO DAILY #30 cap 07/30/19 08/14/21 Rx lisinopril 20 mg tablet 20 mg PO DAILY #90 tab 11/09/20 08/14/21 Rx metformin 500 mg tablet 750 mg PO BID #270 tab 03/15/21 08/14/21 Rx levothyroxine 100 mcg tablet 100 mcg PO DAILY #90 tab 05/03/21 08/14/21 Rx simvastatin 20 mg tablet 20 mg PO DAILY #90 tab 07/28/21 08/14/21 Rx Past Med/Surg History Medical History Carpal tunnel syndrome Chronic kidney disease Depression Dyslipidemia Gastroesophageal reflux disease Gout Hypertension Hypothyroidism Joint pain, knee Osteoarthritis Type 2 diabetes mellitus Surgical History Hx of cholecystectomy Family History Mother Cervical cancer Uncle Myocardial infarction Other No significant family history Denies family history of Ovarian cancer Prostate cancer Breast cancer Lung cancer Colorectal cancer Social History Smoking Status: Never smoker Second Hand Exposure: No; Hx Alcohol Use: No Hx Substance Use: No Preferred Language: Iraqi Communication Ability: Effective Visual Impairment: Limited Hearing Ability: Normal 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 marital status: Current Living Situation: Family current occupational status: retired How many Children do You have: 0 Feels Safe at Home: Yes Childhood Exposure to Second-Hand Smoke: Yes caffeine: Yes Dental Care, Regularly: Yes Physical Activity Frequency: Does not Exercise Seatbelt Use: always Sunscreen Use: No Review of Systems Review of Systems: All systems reviewed & are unremarkable except as noted in HPI & below Physical Exam Physical Exam: General: patient resting comfortably, NAD, ill in appearance, disheveled and poorly kempt Skin: warm, dry, intact, no rashes or lesions HEENT: NC/AT, PERRL, EOMI, anicteric sclera, conjunctiva without injection, external ear normal to inspection and nontender, nares patent, DRY mucus membranes, poor dentition and oral hygiene, no oropharyngeal lesions, neck supple, trachea midline, no LAD, no thyromegaly, no JVD Heart: +S1/S2, regular, no m/r/g Lungs: equal air entry bilaterally, no rales/rhonchi/wheezes Abd: +BS, soft, NT/ND, no masses/organomegaly/ascites Ext: warm, 2+ pulses in UE/LE bilaterally, no clubbing/cyanosis or edema Neuro: nonfocal, patient answering questions and following commands, oriented to self and hospital, speech intact, no facial droop, moving all extremities on command with generalized weakness 4/5 strength in UE/LE bilaterally Results & Data Results & Data ([facility]) Vital Signs (Past 12 Hours) Vital Signs Temp Pulse Resp BP Pulse Ox 08/14/21 22:32 84 27 H 165/79 H 98 08/14/21 21:00 85 22 96 08/14/21 20:32 36.5 C 94 H 27 H 127/75 99 Laboratory Results Laboratory Results WBC 14.69 K/uL (4.8-10.8) H 08/14/21 21:06 RBC 3.84 M/uL (4.2-5.4) L 08/14/21 21:06 Hgb 12.2 g/dL (12.0-16.0) 08/14/21 21:06 Hct 35.6 % (37-47) L 08/14/21 21:06 MCV 92.7 fL (80-100) 08/14/21 21:06 MCH 31.8 pg (25-34) 08/14/21 21:06 MCHC 34.3 g/dL (32-36) 08/14/21 21:06 RDW Std Deviation 47.2 fL (36.4-46.3) H 08/14/21 21:06 RDW Coeff of [place] 13.8 % (11.5-14.5) 08/14/21 21:06 Plt Count 391 K/uL (130-400) 08/14/21 21:06 MPV 11.6 fL (7.4-10.4) H 08/14/21 21:06 Immature Gran % (Auto) 0.3 % 08/14/21 21:06 Neut % (Auto) 76.6 % 08/14/21 21:06 Lymph % (Auto) 14.6 % 08/14/21 21:06 [place] % (Auto) 7.9 % 08/14/21 21:06 Eos % (Auto) 0.5 % 08/14/21 21:06 Baso % (Auto) 0.1 % 08/14/21 21:06 Neut # (Auto) 11.25 K/uL (1.4-6.5) H 08/14/21 21:06 Lymph # (Auto) 2.14 K/uL (1.2-3.4) 08/14/21 21:06 [place] # (Auto) 1.16 K/uL (0.11-0.59) H 08/14/21 21:06 Eos # (Auto) 0.07 K/uL (0-0.5) 08/14/21 21:06 Baso # (Auto) 0.02 K/uL (0-0.2) 08/14/21 21:06 Immature Gran # (Auto) 0.05 K/uL (0.00-0.02) H 08/14/21 21:06 Sodium 136 mmol/L (136-145) 08/14/21 21:06 Potassium 2.8 mmol/L (3.5-5.1) L 08/14/21 21:06 Chloride 102 mmol/L (98-107) 08/14/21 21:06 Carbon Dioxide 19 mmol/L (21-32) L 08/14/21 21:06 Anion Gap 15 (3-11) H 08/14/21 21:06 BUN 14 mg/dl (6-23) 08/14/21 21:06 Creatinine 1.07 mg/dl (0.6-1.2) 08/14/21 21:06 Est Cr Clr Drug Dosing 54.2 ml/min 08/14/21 21:06 Est GFR ( Amer) 59.2 ml/min 08/14/21 21:06 Est GFR (Non-Af Amer) 51.1 ml/min 08/14/21 21:06 BUN/Creatinine Ratio 13.1 (10-20) 08/14/21 21:06 Glucose 148 mg/dl (70-99(Fasting)) H 08/14/21 21:06 Calcium 7.7 mg/dl (8.5-10.1) L 08/14/21 21:06 Phosphorus 1.7 mg/dl (2.5-4.9) L 08/14/21 21:06 Magnesium 0.9 mg/dl (1.7-2.4) L* 08/14/21 21:06 Total Bilirubin 1.3 mg/dl (0.2-1.0) H 08/14/21 21:06 Direct Bilirubin 0.3 mg/dl (0-0.2) H 08/14/21 21:06 AST 52 U/L (13-39) H 08/14/21 21:06 ALT 17 U/L (7-52) 08/14/21 21:06 Alkaline Phosphatase 76 U/L (34-104) 08/14/21 21:06 Troponin I High Sens 15.2 pg/ml (0-14) H 08/14/21 21:06 Total Protein 6.1 gm/dl (6.0-8.3) 08/14/21 21:06 Albumin 3.1 gm/dl (3.4-5.0) L 08/14/21 21:06 TSH 7.318 uIu/ml (0.300-4.500) H 08/14/21 21:06 Urine Color [place] 08/14/21 21:55 Urine Appearance Clear (Clear) 08/14/21 21:55 Urine pH 5.0 (4.5-7.5) 08/14/21 21:55 Ur Specific [place] 1.029 (1.000-1.030) 08/14/21 21:55 Urine Protein 1+ (Negative) H 08/14/21 21:55 Urine Glucose (UA) Negative (Negative) 08/14/21 21:55 Urine Ketones Negative (Negative) 08/14/21 21:55 Urine Blood Negative (Negative) 08/14/21 21:55 Urine Nitrite Positive (Negative) A 08/14/21 21:55 Urine Bilirubin 1+ (Negative) H 08/14/21 21:55 Urine Urobilinogen Negative (Negative) 08/14/21 21:55 Ur Leukocyte Esterase Trace (Negative) H 08/14/21 21:55 Urine WBC (Auto) 1-5 /hpf (0-5) 08/14/21 21:55 Urine RBC (Auto) 5-10 /hpf (0-4) H 08/14/21 21:55 U Hyaline Cast (Auto) 0 /lpf (0-5) 08/14/21 21:55 U Epithel Cells (Auto) 5-10 /lpf (0-5) H 08/14/21 21:55 Urine Bacteria (Auto) Negative (Negative) 08/14/21 21:55 SARS-CoV-2, RNA, NAAT NEGATIVE (NEGATIVE) 08/14/21 22:[address] 08/14/21 20:54 CT head/brain wo con CLINICAL HISTORY: 76 years-old Female with fall, weakness. Acute head injury status post fall with weakness. TECHNIQUE: Multiple axial CT images of the head were obtained without contrast. A dose lowering technique was utilized adhering to the principles of ALARA. CT DOSE: 614.27 mGy.cm COMPARISON: None. FINDINGS: No acute intracranial hemorrhage, midline shift, intracranial mass, hydrocephalus, territorial ischemia or abnormal extra-axial collection. Calcifications of the falx cerebri. Involutional changes with white matter hypodensities suggestive of chronic microvascular ischemic disease. Mildly motion degraded exam. The calvarium is intact. Prior bilateral lens repair. The paranasal sinuses, mastoid air cells, and middle ear cavities are clear. IMPRESSION: No acute intracranial abnormality or calvarial fracture. ACT 112: Negative or not required by law. The above report was generated using voice recognition software. It may contain grammatical, syntax or spelling errors. Electronically signed by: Bernardo Malagon M.D. 08/14/2021 9:51 PM Chest X-Ray 08/14/21 20:55 XR chest 1V portable HISTORY: 76 years-old Female fall, weakness acute weakness with fall COMPARISON: Chest radiographs 05/16/2006 TECHNIQUE: Portable AP view of the chest FINDINGS: The cardiomediastinal and hilar silhouettes are within normal limits. No pneumothorax, pleural effusion, airspace consolidation or overt pulmonary edema. Degenerative changes of the shoulders and spine. IMPRESSION: No acute process. ACT 112: Negative or not required by law. The above report was generated using voice recognition software. It may contain grammatical, syntax or spelling errors. Electronically signed by: Bernardo Malagon M.D. 08/14/2021 9:56 PM ECG Additional Comments: EKG with NSR at 88, IU=493, QRS=82, PFp=823, nonspecific ST changes, no acute ischemia Code Status & VTE Plan VTE Prophylaxis Plan VTE Prophylaxis will be ordered: Yes PG Care Time/CCT Total # of Minutes Spent Total Time Spent with Patient: Total time spent is greater than 50% in coordination of care (as documented) at patient's floor/unit and/or counseling patient: Coding Level of Care Code 52912 Initial Inpt Care Lvl 3 Diagnoses Memory change R41.3 Type 2 diabetes mellitus E11.9 Hypothyroidism E03.9 Hypertension I10 Dyslipidemia E78.5 Depression F32.9 Electrolyte abnormality E87.8 UTI (urinary tract infection) N39.0
[2021-08-15] MEDS ORDERED: SODIUM PHOSPHATE 3 MMOL/1 ML INFUSION IV STA (00:19)
[2021-08-15] MEDS ORDERED: CARBOHYDRATES FOR HYPOGLYCEMIA PO PRN (01:20)
[2021-08-15] MEDS ORDERED: GLUCOSE 10 TABS/TUBE PO PRN (01:20)
[2021-08-15] MEDS ORDERED: GLUCAGON FOR INJ 1 MG VIAL SQ PRN (01:20)
[2021-08-15] MEDS ORDERED: DEXTROSE 50% 50 ML SYRINGE IV PRN (01:20)
[2021-08-15] MEDS ORDERED: GLUCOSE 40% GEL 15 GM TUBE PO PRN (01:20)
[2021-08-15] MEDS ORDERED: LACTATED RINGER S IV SCH (02:00)
[2021-08-15] MEDS ORDERED: MAGNESIUM SULFATE IV SCH (02:00)
[2021-08-15] MEDS ORDERED: SODIUM PHOSPHATE 12 MMOL in SODIUM CHLORIDE 0.9% 250 ML IV ONE (02:00)
[2021-08-15] MEDS: cefTRIAXone SODIUM 2,000 MG in DEXTROSE 5% 50 ML IV SCH (02:08)
[2021-08-15 02:58] LABS: Phosphorus 1.7 mg/dl (2.5-4.9)
[2021-08-15 03:03] LABS: Troponin I High Sensitivity 17.5 pg/ml (0-14)
[2021-08-15] MEDS: LEVOTHYROXINE SODIUM 100 MCG TABLET PO SCH (05:48)
[2021-08-15 06:01] LABS: Basophils # (auto) 0.04 K/uL (0-0.2); Basophils % (auto) 0.3 %; Eosinophils # (auto) 0.12 K/uL (0-0.5); Hematocrit (blood only) 34.2 % (37-47); Hemoglobin 11.5 g/dL (12.0-16.0); Immature Granulocytes # (auto) 0.05 K/uL (0.00-0.02); Immature Granulocytes % (auto) 0.4 %; Lymphocytes # (auto) 2.74 K/uL (1.2-3.4); Mean Corpuscular Hemoglobin 30.8 pg (25-34); Mean Corpuscular Hgb Conc 33.6 g/dL (32-36); Mean Corpuscular Volume 91.7 fL (80-100); Mean Platelet Volume 11.1 fL (7.4-10.4); Monocytes # (auto) 1.13 K/uL (0.11-0.59); Monocytes % (auto) 9.1 %; Neutrophils # (auto) 8.39 K/uL (1.4-6.5); Neutrophils % (auto) 67.2 %; Platelet Count 387 K/uL (130-400); RDW Coefficient of Variation 13.9 % (11.5-14.5); RDW Standard Deviation 45.7 fL (36.4-46.3); Red Blood Count 3.73 M/uL (4.2-5.4); White Blood Count 12.47 K/uL (4.8-10.8)
[2021-08-15 07:09] LABS: Albumin Level 2.9 gm/dl (3.4-5.0); BUN Creatinine Ratio 13.5 (10-20); Bilirubin Direct 0.3 mg/dl (0-0.2); Bilirubin,Total 1.1 mg/dl (0.2-1.0); Calcium 7.3 mg/dl (8.5-10.1); Creatinine Clr Calc Pharmacy 58.9 ml/min; Est GFR (African American) 67.5 ml/min; Est GFR (Non-African American) 58.3 ml/min; Magnesium 1.9 mg/dl (1.7-2.4); Potassium 3.2 mmol/L (3.5-5.1); Total Protein 5.6 gm/dl (6.0-8.3)
[2021-08-15 07:43] LABS: Prealbumin 10.7 mg/dl (20-40)
[2021-08-15] MEDS ORDERED: POTASSIUM CHLORIDE CRTAB 20 MEQ TABCR PO STA (07:48)
[2021-08-15] MEDS ORDERED: LORazepam 0.5 MG TAB PO STA (07:52)
--- NOTE | 2021-08-15 07:58 | Hospitalist Progress Note ---
Date of Service August 15, 2021 Assessment & Plan (1) Electrolyte abnormality: Plan: 76yo female with history of CKD, HTN, DM, Gout and Hypothyroidism presenting from home with generalized weakness and falls at home. Found to have severe hypomagnesemia with Mg=0.9. Also with hypokalemia and hypophosphatemia with K=2.8 and PO4=1.7. Patient reports that she is eating well, although family member at bedside disagrees with this statement. She denies vomiting, diarrhea. She is not presently on PPI medication. Monitor on telemetry -Admit to medical with telemetry -Electrolyte repletion - Mg 1gm given in ER. Will continue repletion with 6gm Mg in 1L LR to be given at 80mL/hr. Repeat chemistry and Mg in AM - KCl 60mEq po given in ER. Repeat chemistry in AM - Neutraphos x 12mMol with repeat PO4 in AM - Additional repletion per AM labs -Check pre-albumin in AM for nutritional assessment -PT/OT evaluation 6/5 Pre-albumin low, suggestive of not eating well at home (patient reported eating well, family disagreed on admit). Will consult nutrition for assessment/supplementations Mag 0.9, ordered 6mg in 1L LR --> 1.9 on repeat K 2.8, replacement ordered and repeat 3.2, will order additional 40meq po x 1 now Neutraphos ordered Anion gap improved 15-->12, suspect from GI losses n/v and electrolyte abn Calcium low, ionized low, ordered oral Calcium given on rocephin for possible UTI w/ weakness on admission however no bacteria, and suspect from severe electrolyte derangements TB elevated, will need to monitor n/v, although denied. In elderly w/ fall/weakness may consider RUQ US? No RUQ pain/n/v currently and will monitor AM labs Urine culture --> st cath this AM for foul smelling urine. On rocephin. Monitor cx PT/OT consults given likely need for inpatient rehab TSH elevated 7.318, however will need to inquire about compliance vs increasing usual Synthroid which is at 100mcg daily * States takes with all other medications and will continue current 100mcg dose and instructed to take in AM on empty stomach Labs in AM (2) Memory change: Plan: Patient with report of memory change discussed during prior PCP visits. Thought possibly to be secondary to underlying depression. She has a mini cognitive test report from 07/28/20 score 0/5. Possibly underlying cognitive impairment or dementia. Uncertain of baseline functional status. Will treat electrolyte derangements, UTI then reassess cognitive function -Continue Risperidone 1mg po qHS -Frequent orientation, delirium prevention strategies Will check B12 --LOW AND IM REPLACEMENT ORDERED, CONTINUE AT DISCHARGE. +NEUROPATHY B/L LE TSH elevated as above, continue usual synthroid but educated on compliance and recommend repeat testing with PCP outpatient (3) UTI (urinary tract infection): Plan: Possible UTI, nitrite positive. Patient afebrile, HD stable, nontoxic -Ceftriaxone 1gm IV daily -Urine culture ordered St cath this morning and will monitor cx (4) Type 2 diabetes mellitus: Plan: Blood sugar =148. Overall well controlled - last FztT4A=8.3 on 07/08/20 -Hold Metformin while inpatient -ISS. Goal blood sugar 100 - 140 (5) Hypothyroidism: Plan: Elevated TSH. NOT COMPLIANT WITH TAKING ON EMPTY STOMACH -Continue Synthroid 100mcg daily, repeat TFT outpatient (6) Hypertension: Plan: Chronic. Improved with IVF Continue lisinopril, BP 137/70 (7) Dyslipidemia: Plan: Chronic. -Continue Simvastatin 20mg po daily (8) Depression: Plan: Chronic -Continue Citalopram Plan: DVT prophylaxis: SCDs, will add Lovenox SQ given not as ambulatory PT/OT consults Continued electrolyte replacement Admission and Anticipated Discharge Date Admission Date: August 14, 2021 Subjective Patient evaluated this morning. States she is doing well. Less anxious Discussed PO intake at home -- she states she might not do very well. No on helps to prepare meals. Discussed medication/thyroid, she takes all medications together. Discussed will need to have this prior to other meds on empty stomach and will not increase the dose for current time. No fever/chills/chest pain/shortness of breath. EAting/drinking without issue, no problems with swallowing endorsed. No nausea or vomiting. Feeling like had to pee this morning and st cath for foul smelling urine and continue to tx/monitor urine culture and await therapy evals. Discussed rehab if needed based on therapy and will monitor how she does. Review of Systems Review of Systems: All systems reviewed & are unremarkable except as noted in HPI & below Physical Exam Physical Exam: General: patient resting comfortably, NAD, chronically ill in appearance, poorly kept, NAD Skin: warm, dry, ecchymosis to R shoulder HEENT: NC/AT, pupils equal/reactive, trachea midline, no deviation, poor dentition/oral hygeine, no JVD appreciated Heart: +S1/S2, regular, no m/r/g, non pitting edema Lungs: equal air entry bilaterally, no rales/rhonchi/wheezes, on room air Abd: +BS, soft, NT/ND, no masses/organomegaly/ascites Ext: warm, 2+ pulses in UE/LE bilaterally, no clubbing/cyanosis or edema Neuro: nonfocal, patient answering questions and following commands, oriented to self and hospital, speech intact, no facial droop, moving all extremities on command with generalized weakness 4/5 strength in UE/LE bilaterally, +NEUROPATHY Results & Data Results & Data ([facility]) Vital Signs (Past 12 Hours) Vital Signs Temp Pulse Pulse Resp BP BP Pulse Ox 08/15/21 06:45 36.4 C L 86 20 137/70 98 08/15/21 01:20 36.5 C 114 H 22 150/95 H 98 08/15/21 01:08 105 H 08/15/21 00:27 85 23 153/77 H 98 08/15/21 00:01 118 H 22 97 08/14/21 22:32 84 27 H 165/79 H 98 08/14/21 21:00 85 22 96 08/14/21 20:32 36.5 C 94 H 27 H 127/75 99 Laboratory Results 08/15/21 08/15/21 08/15/21 Range/Units 07:47 07:35 05:42 WBC (4.8-10.8) K/uL RBC (4.2-5.4) M/uL Hgb (12.0-16.0) g/dL Hct (37-47) % MCV (80-100) fL MCH (25-34) pg MCHC (32-36) g/dL RDW Std Deviation (36.4-46.3) fL RDW Coeff of [place] (11.5-14.5) % Plt Count (130-400) K/uL MPV (7.4-10.4) fL Immature Gran % (Auto) % Neut % (Auto) % Lymph % (Auto) % [place] % (Auto) % Eos % (Auto) % Baso % (Auto) % Neut # (Auto) (1.4-6.5) K/uL Lymph # (Auto) (1.2-3.4) K/uL [place] # (Auto) (0.11-0.59) K/uL Eos # (Auto) (0-0.5) K/uL Baso # (Auto) (0-0.2) K/uL Immature Gran # (Auto) (0.00-0.02) K/uL Sodium (136-145) mmol/L Potassium (3.5-5.1) mmol/L Chloride (98-107) mmol/L Carbon Dioxide (21-32) mmol/L Anion Gap (3-11) BUN (6-23) mg/dl Creatinine (0.6-1.2) mg/dl Est Cr Clr Drug Dosing ml/min Est GFR ( Amer) ml/min Est GFR (Non-Af Amer) ml/min BUN/Creatinine Ratio (10-20) Glucose (70-99(Fasting)) mg/dl POC Glucose 165 H (70-99) mg/dl Calcium (8.5-10.1) mg/dl Ionized Calcium (1.12-1.32) mmol/L Phosphorus (2.5-4.9) mg/dl Magnesium (1.7-2.4) mg/dl Total Bilirubin (0.2-1.0) mg/dl Direct Bilirubin (0-0.2) mg/dl AST (13-39) U/L ALT (7-52) U/L Alkaline Phosphatase (34-104) U/L Troponin I High Sens Pending (0-14) pg/ml Total Protein (6.0-8.3) gm/dl Albumin (3.4-5.0) gm/dl Prealbumin (20-40) mg/dl Vitamin B12 173 L (180-914) pg/ml TSH (0.300-4.500) uIu/ml Urine Color Urine Appearance (Clear) Urine pH (4.5-7.5) Ur Specific [place] (1.000-1.030) Urine Protein (Negative) Urine Glucose (UA) (Negative) Urine Ketones (Negative) Urine Blood (Negative) Urine Nitrite (Negative) Urine Bilirubin (Negative) Urine Urobilinogen (Negative) Ur Leukocyte Esterase (Negative) Urine WBC (Auto) (0-5) /hpf Urine RBC (Auto) (0-4) /hpf U Hyaline Cast (Auto) (0-5) /lpf U Epithel Cells (Auto) (0-5) /lpf Urine Bacteria (Auto) (Negative) SARS-CoV-2, RNA, NAAT (NEGATIVE) 08/15/21 08/15/21 08/15/21 Range/Units 05:42 05:42 01:59 WBC 12.47 H (4.8-10.8) K/uL RBC 3.73 L (4.2-5.4) M/uL Hgb 11.5 L (12.0-16.0) g/dL Hct 34.2 L (37-47) % MCV 91.7 (80-100) fL MCH 30.8 (25-34) pg MCHC 33.6 (32-36) g/dL RDW Std Deviation 45.7 (36.4-46.3) fL RDW Coeff of [place] 13.9 (11.5-14.5) % Plt Count 387 (130-400) K/uL MPV 11.1 H (7.4-10.4) fL Immature Gran % (Auto) 0.4 % Neut % (Auto) 67.2 % Lymph % (Auto) 22.0 % [place] % (Auto) 9.1 % Eos % (Auto) 1.0 % Baso % (Auto) 0.3 % Neut # (Auto) 8.39 H (1.4-6.5) K/uL Lymph # (Auto) 2.74 (1.2-3.4) K/uL [place] # (Auto) 1.13 H (0.11-0.59) K/uL Eos # (Auto) 0.12 (0-0.5) K/uL Baso # (Auto) 0.04 (0-0.2) K/uL Immature Gran # (Auto) 0.05 H (0.00-0.02) K/uL Sodium 138 (136-145) mmol/L Potassium 3.2 L (3.5-5.1) mmol/L Chloride 104 (98-107) mmol/L Carbon Dioxide 22 (21-32) mmol/L Anion Gap 12 H (3-11) BUN 13 (6-23) mg/dl Creatinine 0.96 (0.6-1.2) mg/dl Est Cr Clr Drug Dosing 58.9 ml/min Est GFR ( Amer) 67.5 ml/min Est GFR (Non-Af Amer) 58.3 ml/min BUN/Creatinine Ratio 13.5 (10-20) Glucose 137 H (70-99(Fasting)) mg/dl POC Glucose (70-99) mg/dl Calcium 7.3 L (8.5-10.1) mg/dl Ionized Calcium 0.98 L (1.12-1.32) mmol/L Phosphorus 4.0 D (2.5-4.9) mg/dl Magnesium 1.9 (1.7-2.4) mg/dl Total Bilirubin 1.1 H (0.2-1.0) mg/dl Direct Bilirubin 0.3 H (0-0.2) mg/dl AST 43 H (13-39) U/L ALT 13 (7-52) U/L Alkaline Phosphatase 73 (34-104) U/L Troponin I High Sens (0-14) pg/ml Total Protein 5.6 L (6.0-8.3) gm/dl Albumin 2.9 L (3.4-5.0) gm/dl Prealbumin 10.7 L (20-40) mg/dl Vitamin B12 (180-914) pg/ml TSH (0.300-4.500) uIu/ml Urine Color Urine Appearance (Clear) Urine pH (4.5-7.5) Ur Specific [place] (1.000-1.030) Urine Protein (Negative) Urine Glucose (UA) (Negative) Urine Ketones (Negative) Urine Blood (Negative) Urine Nitrite (Negative) Urine Bilirubin (Negative) Urine Urobilinogen (Negative) Ur Leukocyte Esterase (Negative) Urine WBC (Auto) (0-5) /hpf Urine RBC (Auto) (0-4) /hpf U Hyaline Cast (Auto) (0-5) /lpf U Epithel Cells (Auto) (0-5) /lpf Urine Bacteria (Auto) (Negative) SARS-CoV-2, RNA, NAAT (NEGATIVE) 08/15/21 08/15/21 08/14/21 Range/Units 01:59 01:22 22:59 WBC (4.8-10.8) K/uL RBC (4.2-5.4) M/uL Hgb (12.0-16.0) g/dL Hct (37-47) % MCV (80-100) fL MCH (25-34) pg MCHC (32-36) g/dL RDW Std Deviation (36.4-46.3) fL RDW Coeff of [place] (11.5-14.5) % Plt Count (130-400) K/uL MPV (7.4-10.4) fL Immature Gran % (Auto) % Neut % (Auto) % Lymph % (Auto) % [place] % (Auto) % Eos % (Auto) % Baso % (Auto) % Neut # (Auto) (1.4-6.5) K/uL Lymph # (Auto) (1.2-3.4) K/uL [place] # (Auto) (0.11-0.59) K/uL Eos # (Auto) (0-0.5) K/uL Baso # (Auto) (0-0.2) K/uL Immature Gran # (Auto) (0.00-0.02) K/uL Sodium (136-145) mmol/L Potassium (3.5-5.1) mmol/L Chloride (98-107) mmol/L Carbon Dioxide (21-32) mmol/L Anion Gap (3-11) BUN (6-23) mg/dl Creatinine (0.6-1.2) mg/dl Est Cr Clr Drug Dosing ml/min Est GFR ( Amer) ml/min Est GFR (Non-Af Amer) ml/min BUN/Creatinine Ratio (10-20) Glucose (70-99(Fasting)) mg/dl POC Glucose 151 H (70-99) mg/dl Calcium (8.5-10.1) mg/dl Ionized Calcium (1.12-1.32) mmol/L Phosphorus 1.7 L (2.5-4.9) mg/dl Magnesium (1.7-2.4) mg/dl Total Bilirubin (0.2-1.0) mg/dl Direct Bilirubin (0-0.2) mg/dl AST (13-39) U/L ALT (7-52) U/L Alkaline Phosphatase (34-104) U/L Troponin I High Sens 17.5 H (0-14) pg/ml Total Protein (6.0-8.3) gm/dl Albumin (3.4-5.0) gm/dl Prealbumin (20-40) mg/dl Vitamin B12 (180-914) pg/ml TSH (0.300-4.500) uIu/ml Urine Color Urine Appearance (Clear) Urine pH (4.5-7.5) Ur Specific [place] (1.000-1.030) Urine Protein (Negative) Urine Glucose (UA) (Negative) Urine Ketones (Negative) Urine Blood (Negative) Urine Nitrite (Negative) Urine Bilirubin (Negative) Urine Urobilinogen (Negative) Ur Leukocyte Esterase (Negative) Urine WBC (Auto) (0-5) /hpf Urine RBC (Auto) (0-4) /hpf U Hyaline Cast (Auto) (0-5) /lpf U Epithel Cells (Auto) (0-5) /lpf Urine Bacteria (Auto) (Negative) SARS-CoV-2, RNA, NAAT NEGATIVE (NEGATIVE) 08/14/21 08/14/21 08/14/21 Range/Units 21:55 21:06 21:06 WBC (4.8-10.8) K/uL RBC (4.2-5.4) M/uL Hgb (12.0-16.0) g/dL Hct (37-47) % MCV (80-100) fL MCH (25-34) pg MCHC (32-36) g/dL RDW Std Deviation (36.4-46.3) fL RDW Coeff of [place] (11.5-14.5) % Plt Count (130-400) K/uL MPV (7.4-10.4) fL Immature Gran % (Auto) % Neut % (Auto) % Lymph % (Auto) % [place] % (Auto) % Eos % (Auto) % Baso % (Auto) % Neut # (Auto) (1.4-6.5) K/uL Lymph # (Auto) (1.2-3.4) K/uL [place] # (Auto) (0.11-0.59) K/uL Eos # (Auto) (0-0.5) K/uL Baso # (Auto) (0-0.2) K/uL Immature Gran # (Auto) (0.00-0.02) K/uL Sodium 136 (136-145) mmol/L Potassium 2.8 L (3.5-5.1) mmol/L Chloride 102 (98-107) mmol/L Carbon Dioxide 19 L (21-32) mmol/L Anion Gap 15 H (3-11) BUN 14 (6-23) mg/dl Creatinine 1.07 (0.6-1.2) mg/dl Est Cr Clr Drug Dosing 54.2 ml/min Est GFR ( Amer) 59.2 ml/min Est GFR (Non-Af Amer) 51.1 ml/min BUN/Creatinine Ratio 13.1 (10-20) Glucose 148 H (70-99(Fasting)) mg/dl POC Glucose (70-99) mg/dl Calcium 7.7 L (8.5-10.1) mg/dl Ionized Calcium (1.12-1.32) mmol/L Phosphorus 1.7 L (2.5-4.9) mg/dl Magnesium 0.9 L* (1.7-2.4) mg/dl Total Bilirubin 1.3 H (0.2-1.0) mg/dl Direct Bilirubin 0.3 H (0-0.2) mg/dl AST 52 H (13-39) U/L ALT 17 (7-52) U/L Alkaline Phosphatase 76 (34-104) U/L Troponin I High Sens 15.2 H (0-14) pg/ml Total Protein 6.1 (6.0-8.3) gm/dl Albumin 3.1 L (3.4-5.0) gm/dl Prealbumin (20-40) mg/dl Vitamin B12 (180-914) pg/ml TSH (0.300-4.500) uIu/ml Urine Color Slope Urine Appearance Clear (Clear) Urine pH 5.0 (4.5-7.5) Ur Specific [place] 1.029 (1.000-1.030) Urine Protein 1+ H (Negative) Urine Glucose (UA) Negative (Negative) Urine Ketones Negative (Negative) Urine Blood Negative (Negative) Urine Nitrite Positive A (Negative) Urine Bilirubin 1+ H (Negative) Urine Urobilinogen Negative (Negative) Ur Leukocyte Esterase Trace H (Negative) Urine WBC (Auto) 1-5 (0-5) /hpf Urine RBC (Auto) 5-10 H (0-4) /hpf U Hyaline Cast (Auto) 0 (0-5) /lpf U Epithel Cells (Auto) 5-10 H (0-5) /lpf Urine Bacteria (Auto) Negative (Negative) SARS-CoV-2, RNA, NAAT (NEGATIVE) 08/14/21 08/14/21 Range/Units 21:06 21:06 WBC 14.69 H (4.8-10.8) K/uL RBC 3.84 L (4.2-5.4) M/uL Hgb 12.2 (12.0-16.0) g/dL Hct 35.6 L (37-47) % MCV 92.7 (80-100) fL MCH 31.8 (25-34) pg MCHC 34.3 (32-36) g/dL RDW Std Deviation 47.2 H (36.4-46.3) fL RDW Coeff of [place] 13.8 (11.5-14.5) % Plt Count 391 (130-400) K/uL MPV 11.6 H (7.4-10.4) fL Immature Gran % (Auto) 0.3 % Neut % (Auto) 76.6 % Lymph % (Auto) 14.6 % [place] % (Auto) 7.9 % Eos % (Auto) 0.5 % Baso % (Auto) 0.1 % Neut # (Auto) 11.25 H (1.4-6.5) K/uL Lymph # (Auto) 2.14 (1.2-3.4) K/uL [place] # (Auto) 1.16 H (0.11-0.59) K/uL Eos # (Auto) 0.07 (0-0.5) K/uL Baso # (Auto) 0.02 (0-0.2) K/uL Immature Gran # (Auto) 0.05 H (0.00-0.02) K/uL Sodium (136-145) mmol/L Potassium (3.5-5.1) mmol/L Chloride (98-107) mmol/L Carbon Dioxide (21-32) mmol/L Anion Gap (3-11) BUN (6-23) mg/dl Creatinine (0.6-1.2) mg/dl Est Cr Clr Drug Dosing ml/min Est GFR ( Amer) ml/min Est GFR (Non-Af Amer) ml/min BUN/Creatinine Ratio (10-20) Glucose (70-99(Fasting)) mg/dl POC Glucose (70-99) mg/dl Calcium (8.5-10.1) mg/dl Ionized Calcium (1.12-1.32) mmol/L Phosphorus (2.5-4.9) mg/dl Magnesium (1.7-2.4) mg/dl Total Bilirubin (0.2-1.0) mg/dl Direct Bilirubin (0-0.2) mg/dl AST (13-39) U/L ALT (7-52) U/L Alkaline Phosphatase (34-104) U/L Troponin I High Sens (0-14) pg/ml Total Protein (6.0-8.3) gm/dl Albumin (3.4-5.0) gm/dl Prealbumin (20-40) mg/dl Vitamin B12 (180-914) pg/ml TSH 7.318 H (0.300-4.500) uIu/ml Urine Color Urine Appearance (Clear) Urine pH (4.5-7.5) Ur Specific [place] (1.000-1.030) Urine Protein (Negative) Urine Glucose (UA) (Negative) Urine Ketones (Negative) Urine Blood (Negative) Urine Nitrite (Negative) Urine Bilirubin (Negative) Urine Urobilinogen (Negative) Ur Leukocyte Esterase (Negative) Urine WBC (Auto) (0-5) /hpf Urine RBC (Auto) (0-4) /hpf U Hyaline Cast (Auto) (0-5) /lpf U Epithel Cells (Auto) (0-5) /lpf Urine Bacteria (Auto) (Negative) SARS-CoV-2, RNA, NAAT (NEGATIVE) Diagnostic Findings Head CT 08/14/21 20:54 CT head/brain wo con CLINICAL HISTORY: 76 years-old Female with fall, weakness. Acute head injury status post fall with weakness. TECHNIQUE: Multiple axial CT images of the head were obtained without contrast. A dose lowering technique was utilized adhering to the principles of ALARA. CT DOSE: 614.27 mGy.cm COMPARISON: None. FINDINGS: No acute intracranial hemorrhage, midline shift, intracranial mass, hydrocephalus, territorial ischemia or abnormal extra-axial collection. Calcifications of the falx cerebri. Involutional changes with white matter hypodensities suggestive of chronic microvascular ischemic disease. Mildly motion degraded exam. The calvarium is intact. Prior bilateral lens repair. The paranasal sinuses, mastoid air cells, and middle ear cavities are clear. IMPRESSION: No acute intracranial abnormality or calvarial fracture. ACT 112: Negative or not required by law. The above report was generated using voice recognition software. It may contain grammatical, syntax or spelling errors. Electronically signed by: Bernardo Malagon M.D. 08/14/2021 9:51 PM Chest X-Ray 08/14/21 20:55 XR chest 1V portable HISTORY: 76 years-old Female fall, weakness acute weakness with fall COMPARISON: Chest radiographs 05/16/2006 TECHNIQUE: Portable AP view of the chest FINDINGS: The cardiomediastinal and hilar silhouettes are within normal limits. No pneumothorax, pleural effusion, airspace consolidation or overt pulmonary edema. Degenerative changes of the shoulders and spine. IMPRESSION: No acute process. ACT 112: Negative or not required by law. The above report was generated using voice recognition software. It may contain grammatical, syntax or spelling errors. Electronically signed by: Bernardo Malagon M.D. 08/14/2021 9:56 PM PG Care Time/CCT Total # of Minutes Spent Total Time Spent with Patient: Total time spent is greater than 50% in coordination of care (as documented) at patient's floor/unit and/or counseling patient: Coding Level of Care Code 78560 Subseq Hosp Care Lvl 3 Diagnoses Electrolyte abnormality E87.8 Memory change R41.3 UTI (urinary tract infection) N39.0 Type 2 diabetes mellitus E11.9 Hypothyroidism E03.9 Hypertension I10 Dyslipidemia E78.5 Depression F32.9
[2021-08-15] MEDS: INSULIN ASPART PER UNIT SC SCH ×4 (08:09→20:35)
[2021-08-15] MEDS: SIMVASTATIN 20 MG TAB PO SCH (08:10)
[2021-08-15] MEDS: lisinopril 20 MG TAB PO SCH (08:10)
[2021-08-15] MEDS: GABAPENTIN 300 MG CAP PO SCH (08:10)
[2021-08-15] MEDS: CALCIUM CARBONATE 1,250 MG/5 ML UDC PO SCH ×2 (08:44→20:32)
--- NOTE | 2021-08-15 08:53 | Electrocardiogram Report ---
Test Reason : Blood Pressure : / mmHG Vent. Rate : 088 BPM Atrial Rate : 088 BPM P-R Int : 172 ms QRS Dur : 082 ms QT Int : 376 ms P-R-T Axes : 058 -07 003 degrees QTc Int : 454 ms Poor data quality, interpretation may be adversely affected Normal sinus rhythm Nonspecific ST abnormality Abnormal ECG When compared with ECG of 16-MAY-2006 13:19, T wave inversion no longer evident in Anterior leads Confirmed by Lexa Loco ([id number]) on 08/15/2021 8:52:41 AM Referred By: REFERRED SELF Confirmed By:Lexa Loco
[2021-08-15] MEDS: CYANOCOBALAMIN 1000 MCG/ML VIAL IM SCH (10:33)
[2021-08-15] MEDS: ENOXAPARIN INJ 40 MG/0.4 ML SYR SQ SCH (10:33)
[2021-08-15] MEDS ORDERED: POTASSIUM CHLORIDE 10 MEQ in SODIUM CHLORIDE 0.9% 1000ML 1,000 ML IV SCH (13:45)
[2021-08-15] MEDS: DOCUSATE SODIUM/SENNA 50/8.6MG TAB PO SCH (16:34)
[2021-08-15] MEDS: POLYETHYLENE (MIRALAX) 17 GM PACK PO SCH (16:34)
[2021-08-15] MEDS: CITALOPRAM 20 MG TAB PO SCH (20:32)
[2021-08-15] MEDS: ACETAMINOPHEN 325 MG TAB PO PRN (20:32)
[2021-08-15] MEDS: risperiDONE 1 MG TABLET PO SCH (20:32)
[2021-08-15] MEDS ORDERED: LACTATED RINGER'S 500 ML IV ONE (20:36)
[2021-08-15] MEDS: LACTATED RINGER'S 1,000 ML IV SCH (21:05)
[2021-08-16] MEDS: cefTRIAXone SODIUM 2,000 MG in DEXTROSE 5% 50 ML IV SCH (05:32)
[2021-08-16] MEDS: LEVOTHYROXINE SODIUM 100 MCG TABLET PO SCH (05:33)
[2021-08-16] MEDS: LACTATED RINGER'S 1,000 ML IV SCH ×2 (06:31→16:06)
[2021-08-16 06:43] LABS: Hematocrit (blood only) 33.1 % (37-47); Hemoglobin 10.9 g/dL (12.0-16.0); Mean Corpuscular Hemoglobin 31.1 pg (25-34); Mean Corpuscular Hgb Conc 32.9 g/dL (32-36); Mean Corpuscular Volume 94.3 fL (80-100); Mean Platelet Volume 11.3 fL (7.4-10.4); Platelet Count 387 K/uL (130-400); RDW Coefficient of Variation 14.6 % (11.5-14.5); RDW Standard Deviation 49.7 fL (36.4-46.3); Red Blood Count 3.51 M/uL (4.2-5.4); White Blood Count 7.79 K/uL (4.8-10.8)
[2021-08-16 07:19] LABS: Est GFR (African American) 64.3 ml/min; Potassium 3.7 mmol/L (3.5-5.1)
[2021-08-16 07:20] LABS: Albumin Level 2.8 gm/dl (3.4-5.0); Bilirubin Direct 0.1 mg/dl (0-0.2); Bilirubin,Total 0.6 mg/dl (0.2-1.0); Calcium 8.1 mg/dl (8.5-10.1); Creatinine Clr Calc Pharmacy 58.3 ml/min; Est GFR (Non-African American) 55.5 ml/min; Phosphorus 2.8 mg/dl (2.5-4.9); Total Protein 5.4 gm/dl (6.0-8.3)
[2021-08-16] MEDS: GABAPENTIN 300 MG CAP PO SCH (08:25)
[2021-08-16] MEDS: ENOXAPARIN INJ 40 MG/0.4 ML SYR SQ SCH (08:25)
[2021-08-16] MEDS: CALCIUM CARBONATE 1,250 MG/5 ML UDC PO SCH ×2 (08:25→20:22)
[2021-08-16] MEDS: lisinopril 20 MG TAB PO SCH (08:25)
[2021-08-16] MEDS: INSULIN ASPART PER UNIT SC SCH ×4 (08:25→20:20)
[2021-08-16] MEDS: SIMVASTATIN 20 MG TAB PO SCH (08:25)
[2021-08-16] MEDS: CYANOCOBALAMIN 1000 MCG/ML VIAL IM SCH (08:26)
[2021-08-16] MEDS: POLYETHYLENE (MIRALAX) 17 GM PACK PO SCH (08:26)
[2021-08-16] MEDS: DOCUSATE SODIUM/SENNA 50/8.6MG TAB PO SCH (08:26)
--- NOTE | 2021-08-16 13:27 | Hospitalist Progress Note ---
Date of Service August 16, 2021 Assessment & Plan (1) Electrolyte abnormality: Plan: 76yo female with history of CKD, HTN, DM, Gout and Hypothyroidism presenting from home with generalized weakness and falls at home. Found to have severe hypomagnesemia with Mg=0.9. Also with hypokalemia and hypophosphatemia with K=2.8 and PO4=1.7. Patient reports that she is eating well, although family member at bedside upon arrival disagrees with this statement. She denies vomi ting, diarrhea. She is not presently on PPI medication. Hypomagnesemiareplaced/resolved Hypophosphatemiareplaced/resolved Hypokalemiareplaced/resolved (2) UTI (urinary tract infection): Plan: Patient presented with a grossly infected UA: Nitrite and leukocyte esterase positive and associated leukocytosis Urine culture not obtained upfront. Was obtained yesterday (but after being on antibiotics) thus likely skewed I suspect a urinary tract infection is likely the cause of her associated weakness and increased confusion (which both have improved) Continue empiric Rocephin with plan to transition to Omnicef with continued favorable response (3) Generalized weakness: Plan: Likely related to UTI Poor oral intake and electrolyte abnormalities likely contributing (these are now normal) Awaiting PT/OT eval. Suspect will need rehab. Patient and her sister are agreeable (4) Memory change: Plan: Patient with report of memory change discussed during prior PCP visits. She has a mini cognitive test report from 07/28/20 score 0/5. Possibly underlying cognitive impairment or dementia. In my discussion with patient today, she seems very intellectually simple. Uncertain of baseline functional status. 08/16: Spoke to Merle (patient's sister) who spoke to patient on the phone and reports that she seems back to her baseline I suspect she has some type of underlying intellectual disability and her UTI and electrolyte derangements were contributing to concurrent encephalopathy (5) Type 2 diabetes mellitus: Plan: Blood sugar =148. Overall well controlled - last [id number]=6.3 on 07/08/20 -Hold Metformin while inpatient -ISS. Goal blood sugar 100 - 140 (6) Hypothyroidism: Plan: On Synthroid TSH elevated at 7.318 May be euthyroid sick syndrome Patient reports she is compliant Recommend follow-up TSH in 6 to 8 weeks (at discretion of PCP). No medication adjustments at this time (7) Hypertension: Plan: Chronic. Continue lisinopril, BP 135/74 (8) Dyslipidemia: Plan: Chronic. -Continue Simvastatin 20mg po daily (9) Depression: Plan: Chronic -Continue Citalopram Plan: DVT prophylaxis: SCDs, will add Lovenox SQ given not as ambulatory PT/OT consults Admission and Anticipated Discharge Date Admission Date: August 14, 2021 Subjective Patient seen on daily rounds. She is awake and answering all questions appropriately. She denies fevers, chills, chest pain, shortness of breath, abdominal pain, nausea or vomiting. Nursing at bedside and reports that she was extremely weak and lethargic and difficult to assist to and from the bathroom. Patient noted to have a Fowler catheter in place. Asked staff about this and it was placed due to patient frequently asking to toilet. A bladder scan was done showing only 40 cc of urine. There was no retention. Spoke with patient's sister (Merle) with whom patient lives. At baseline, patient can walk independently. She does not use an ambulatory device. There are no steps in the house and she utilizes a ramp. She does not do her own co oking/cleaning but is able to independently perform her ADLs. Review of Systems Review of Systems: All systems reviewed and are unremarkable except as noted in HPI and below Denies fevers, chills, headache, nasal congestion, sore throat, cough, chest pain, shortness of breath, palpitations, orthopnea, PND, abdominal pain, nausea, vomiting, diarrhea, constipation, dysuria, hematuria, frequency, back pain, joint pain or swelling, easy bruising or bleeding, skin lesions or rashes. Physical Exam Physical Exam: General: Resting comfortably in her hospital bed. Seems very simple in her answers. Slow to answer but oriented. Does not appear ill or toxic. HEENT: Head is AT/NC. Buccal mucosa is moist and pink Neck: No JVD. Negative hepatojugular reflex Cardiac: RRR without M/G/R Lungs: CTA without W/R/R Abdomen: Normoactive X4. Soft and nontender in all quadrants. Extremities: No peripheral clubbing cyanosis or edema Neuro: A&O X4. Cranial nerves II through XII are grossly intact. No focal neuro deficits Skin: No obvious skin lesions or rashes Psych: very simple Results & Data Results & Data ([facility]) Vital Signs (Past 12 Hours) Vital Signs Temp Pulse Pulse Resp BP Pulse Ox 08/16/21 11:11 36.7 C 90 16 135/74 98 08/16/21 07:49 36.6 C 64 16 101/59 L 97 08/16/21 07:17 58 L 08/16/21 03:56 36.4 C L 76 18 132/69 98 Laboratory Results 08/16/21 06:04 08/16/21 06:04 PG Care Time/CCT Total # of Minutes Spent Total Time Spent with Patient: Total time spent is greater than 50% in coordination of care (as documented) at patient's floor/unit and/or counseling patient: Coding Level of Care Code 62370 Subseq Hosp Care Lvl 2 Diagnoses Electrolyte abnormality E87.8 Memory change R41.3 UTI (urinary tract infection) N39.0 Type 2 diabetes mellitus E11.9 Hypothyroidism E03.9 Hypertension I10 Dyslipidemia E78.5 Depression F32.9 Generalized weakness R53.1
[2021-08-16] MEDS: ACETAMINOPHEN 325 MG TAB PO PRN (20:21)
[2021-08-16] MEDS: TAMSULOSIN HCL 0.4 MG CAP PO SCH (20:21)
[2021-08-16] MEDS: risperiDONE 1 MG TABLET PO SCH (20:22)
[2021-08-16] MEDS: CITALOPRAM 20 MG TAB PO SCH (20:22)
[2021-08-17] MEDS: ACETAMINOPHEN 325 MG TAB PO PRN ×2 (05:38→10:47)
[2021-08-17] MEDS: cefTRIAXone SODIUM 2,000 MG in DEXTROSE 5% 50 ML IV SCH (05:39)
[2021-08-17] MEDS: LEVOTHYROXINE SODIUM 100 MCG TABLET PO SCH (05:40)
[2021-08-17] MEDS: SIMVASTATIN 20 MG TAB PO SCH (07:40)
[2021-08-17] MEDS: GABAPENTIN 300 MG CAP PO SCH (07:40)
[2021-08-17] MEDS: CALCIUM CARBONATE 1,250 MG/5 ML UDC PO SCH ×2 (07:41→21:14)
[2021-08-17] MEDS: CYANOCOBALAMIN 1000 MCG/ML VIAL IM SCH (07:41)
[2021-08-17] MEDS: lisinopril 20 MG TAB PO SCH (07:41)
[2021-08-17] MEDS: DOCUSATE SODIUM/SENNA 50/8.6MG TAB PO SCH (07:41)
[2021-08-17] MEDS: ENOXAPARIN INJ 40 MG/0.4 ML SYR SQ SCH (07:42)
[2021-08-17] MEDS: POLYETHYLENE (MIRALAX) 17 GM PACK PO SCH ×3 (07:42→21:20)
[2021-08-17] MEDS: INSULIN ASPART PER UNIT SC SCH ×4 (08:36→21:10)
[2021-08-17] MEDS ORDERED: MAGNESIUM CITRATE 296 ML/BTL PO STA (09:06)
--- NOTE | 2021-08-17 10:19 | XRay Report ---
XR KUB/Abdomen 1 view CLINICAL HISTORY: conspitation. COMPARISON STUDY: No previous studies for comparison. TECHNIQUE: 2 supine views of the abdomen FINDINGS: The bowel gas pattern is within normal limits without evidence for dilatation or obstruction. There i s mild fecal stasis without evidence for impaction. There is no evidence for organomegaly or gross in tra-abdominal mass. No abnormal calcifications are seen along the course of the urinary tracts bilate rally. No acute osseous pathology. Prominent degenerative changes are seen within the spine. IMPRESSION: 1. No acute intra-abdominal abnormality. 2. Mild fecal stasis. ACT 112: Negative or not required by law. Electronically signed by: Steve Cordova M.D. 08/17/2021 10:17 AM
[2021-08-17] MEDS: CEFDINIR 300 MG CAP PO SCH ×2 (10:43→21:15)
[2021-08-17] MEDS: CYANOCOBALAMIN (B-12) 500 MCG TABLET PO SCH (10:43)
--- NOTE | 2021-08-17 12:18 | Hospitalist Progress Note ---
Date of Service August 17, 2021 Assessment & Plan (1) Electrolyte abnormality: Plan: 76yo female with history of CKD, HTN, DM, Gout and Hypothyroidism presenting from home with generalized weakness and falls at home. Found to have severe hypomagnesemia with Mg=0.9. Also with hypokalemia and hypophosphatemia with K=2.8 and PO4=1.7. Patient reports that she is eating well, although family member at bedside upon arrival disagrees with this statement. She denies vomi ting, diarrhea. She is not presently on PPI medication. Hypomagnesemiareplaced/resolved Hypophosphatemiareplaced/resolved Hypokalemiareplaced/resolved (2) UTI (urinary tract infection): Plan: Patient presented with a grossly infected UA: Nitrite and leukocyte esterase positive and associated leukocytosis Urine culture not obtained upfront.--> Not obtained until after hospitalized and being on antibiotics, thus likely skewed. Urine culture on 08/15 showing no growth I suspect a urinary tract infection is likely the cause of her associated weakness and increased confusion (which both have improved) Rocephin given upfront. Transition to Omnicef to complete full course (7 days) (3) Urinary retention: Plan: Urinary catheter placed upfront by prior provider due to poor output/monitor I's and O's Catheter removed 08/16 but patient unable to void. Bladder scan showed 1400 cc retention for which catheter reinserted Now on Flomax Is complaining of constipation. KUB will be obtained to determine if she perhaps has a bladder outlet obstruction from significant constipation. We will treat constipation We will initiate bladder training in hopes that the Sanon can be discontinued Urinary tract infection may be contributing to retention (4) Constipation: Plan: Mag citrate to be given today Continue MiraLAX but twice daily dosing (to keep bowel moving) Can utilize fleets enemas if needed Obtain KUB to assess stool burden (as outlined above). I am not concerned about obstruction as she does not have abdominal pain, nausea or vomiting and she is passing flatus but concern for potential bladder outlet obstruction (5) Generalized weakness: Plan: Likely related to UTI Poor oral intake and electrolyte abnormalities likely contributing (these are now normal) PT/OT have evaluated patient and are recommending rehab. Case management working on this --Case management has since spoken to a cousin who reports that both patient and her sister (with whom she lives) have unsafe living conditions. CM aware. ? need to get OOA involved (6) Memory change: Plan: Patient with report of memory change discussed during prior PCP visits. She has a mini cognitive test report from 07/28/20 score 0/5. Possibly underlying cognitive impairment or dementia. In my discussion with patient today, she seems very intellectually simple. Uncertain of baseline functional status. 08/16: Spoke to Merle (patient's sister) who spoke to patient on the phone and reports that she seems back to her baseline I suspect she has some type of underlying intellectual disability and her UTI and electrolyte derangements were contributing to concurrent encephalopathy (7) Type 2 diabetes mellitus: Plan: Blood sugar =148. Overall well controlled - last [id number]=0.3 on 07/08/20 -Hold Metformin while inpatient -Blood sugars acceptable (137 this morning) (8) Hypothyroidism: Plan: On Synthroid TSH elevated at 7.318 May be euthyroid sick syndrome Patient reports she is compliant Recommend follow-up TSH in 6 to 8 weeks (at discretion of PCP). No medication adjustments at this time (9) Hypertension: Plan: Chronic. Continue lisinopril, BP 135/74 (10) Dyslipidemia: Plan: Chronic. -Continue Simvastatin 20mg po daily (11) Depression: Plan: Chronic -Continue Citalopram Plan: DVT prophylaxis: Lovenox SQ given not as ambulatory PT/OT recommending rehab. Case management on board. Patient is medically and hemodynamically stable for discharge Admission and Anticipated Discharge Date Admission Date: August 14, 2021 Subjective Patient see on daily rounds today. Unfortunately, was unable to void yesterday after sanon catheter removed (felt like she needed to void). Bladder scan done for 1400. Upon further questioning, she has also not had a BM since being hospitalized. Denies abd pain, N/V. Is passing flatus Seen by PT/OT who are recommending rehab. Pt reluctant to this but when I explained to her the reason and that I spoke with her sister (yesterday) who was agreeable to this plan, patient now agreeable. Per Case mgmt-- she called sister today who apparently fell and is now being take to the ED. CM spoke to patient's cousin who reports that this patient lives with her sister and neither are safe to be living in this environment. Review of Systems Review of Systems: All systems reviewed and are unremarkable except as noted in HPI and below Denies fevers, chills, headache, nasal congestion, sore throat, cough, chest pain, shortness of breath, palpitations, orthopnea, PND, abdominal pain, nausea, vomiting, diarrhea, dysuria, hematuria, frequency, back pain, joint pain or swelling, easy bruising or bleeding, skin lesions or rashes. Physical Exam Physical Exam: General: Resting comfortably in her hospital bed. Seems very simple in her answers. Slow to answer but oriented. Does not appear ill or toxic. HEENT: Head is AT/NC. Buccal mucosa is moist and pink Neck: No JVD. Negative hepatojugular reflex Cardiac: RRR without M/G/R Lungs: CTA without W/R/R Abdomen: Normoactive X4. Soft and nontender in all quadrants. Extremities: No peripheral clubbing cyanosis or edema Neuro: A&O X4. Cranial nerves II through XII are grossly intact. No focal neuro deficits Skin: No obvious skin lesions or rashes Psych: very simple Results & Data Results & Data ([facility]) Vital Signs (Past 12 Hours) Vital Signs Temp Pulse Resp BP Pulse Ox 08/17/21 11:24 36.8 C 90 16 122/67 99 08/17/21 06:34 36.3 C L 68 20 120/72 99 08/17/21 03:10 36.4 C L 85 18 109/67 97 Diagnostic Findings No lab data PG Care Time/CCT Total # of Minutes Spent Total Time Spent with Patient: Total time spent is greater than 50% in coordination of care (as documented) at patient's floor/unit and/or counseling patient: Coding Level of Care Code 15993 Subseq Hosp Care Lvl 2 Diagnoses Electrolyte abnormality E87.8 UTI (urinary tract infection) N39.0 Generalized weakness R53.1 Memory change R41.3 Type 2 diabetes mellitus E11.9 Hypothyroidism E03.9 Hypertension I10 Dyslipidemia E78.5 Depression F32.9 Urinary retention R33.9 Constipation K59.00
[2021-08-17] MEDS: CITALOPRAM 20 MG TAB PO SCH (21:16)
[2021-08-17] MEDS: risperiDONE 1 MG TABLET PO SCH (21:20)
[2021-08-17] MEDS: TAMSULOSIN HCL 0.4 MG CAP PO SCH (21:20)
[2021-08-18] MEDS: LEVOTHYROXINE SODIUM 100 MCG TABLET PO SCH (06:01)
[2021-08-18] MEDS: lisinopril 20 MG TAB PO SCH (07:22)
[2021-08-18] MEDS: GABAPENTIN 300 MG CAP PO SCH (07:22)
[2021-08-18] MEDS: CYANOCOBALAMIN (B-12) 500 MCG TABLET PO SCH (07:22)
[2021-08-18] MEDS: CEFDINIR 300 MG CAP PO SCH ×2 (07:22→21:17)
[2021-08-18] MEDS: SIMVASTATIN 20 MG TAB PO SCH (07:22)
[2021-08-18] MEDS: CALCIUM CARBONATE 1,250 MG/5 ML UDC PO SCH ×2 (07:23→21:15)
[2021-08-18] MEDS: ENOXAPARIN INJ 40 MG/0.4 ML SYR SQ SCH (07:23)
[2021-08-18] MEDS: POLYETHYLENE (MIRALAX) 17 GM PACK PO SCH ×2 (07:24→21:17)
[2021-08-18] MEDS: DOCUSATE SODIUM/SENNA 50/8.6MG TAB PO SCH (07:28)
[2021-08-18] MEDS: INSULIN ASPART PER UNIT SC SCH ×4 (08:01→21:16)
--- NOTE | 2021-08-18 11:43 | Hospitalist Progress Note ---
Date of Service August 18, 2021 Assessment & Plan (1) Electrolyte abnormality: Plan: 76yo female with history of CKD, HTN, DM, Gout and Hypothyroidism presenting from home with generalized weakness and falls at home. Found to have severe hypomagnesemia with Mg=0.9. Also with hypokalemia and hypophosphatemia with K=2.8 and PO4=1.7. Patient reports that she is eating well, although family member at bedside upon arrival disagrees with this statement. She denies vomi ting, diarrhea. She is not presently on PPI medication. Hypomagnesemiareplaced/resolved Hypophosphatemiareplaced/resolved Hypokalemiareplaced/resolved (2) UTI (urinary tract infection): Plan: Patient presented with a grossly infected UA: Nitrite and leukocyte esterase positive and associated leukocytosis Urine culture not obtained upfront.--> Not obtained until after hospitalized and being on antibiotics, thus likely skewed. Urine culture on 08/15 showing no growth I suspect a urinary tract infection is likely the cause of her associated weakness and increased confusion (which both have improved) Rocephin given upfront. Transitioned to Omnicef to complete full course (7 days) which will conclude on 08/20 Has associated debility for which PT/OT recommending rehab. Case management on board (3) Urinary retention: Plan: Urinary catheter placed upfront by prior provider due to poor output/monitor I's and O's Catheter removed 08/16 but patient unable to void. Bladder scan showed 1400 cc retention for which catheter reinserted Now on Flomax was c/o constipation-- successfully treated. Perhaps contributing to urinary retention (bladder outlet obstruction). Also with urinary tract infection which was likely contributing to retention Bladder training initiated 08/17. Doing well with this. Anticipate removal of Fowler later today or tomorrow/ trial of void. (4) Constipation: Plan: Successfully treated with mag citrate Continue routine MiraLAX Can utilize fleets enemas if needed KUB obtained 08/17. No obstruction or ileus. No significant fecal burden (5) Generalized weakness: Plan: Likely related to UTI Poor oral intake and electrolyte abnormalities likely contributing (these are now normal) PT/OT have evaluated patient and are recommending rehab. Case management working on this --Case management has since spoken to a cousin who reports that both patient and her sister (with whom she lives) have unsafe living conditions. CM aware. ? need to get OOA involved --Patient's sister has also sustained a ground-level fall and is now hospitalized in this facility (6) Memory change: Plan: Patient with report of memory change discussed during prior PCP visits. She has a mini cognitive test report from 07/28/20 score 0/5. Possibly underlying cognitive impairment or dementia. In my discussion with patient today, she seems very intellectually simple. 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 Overall well controlled - last [id number]=3.3 on 07/08/20 -Hold Metformin while inpatient -Blood sugars acceptable (156 this morning) (8) Hypothyroidism: Plan: On Synthroid TSH elevated at 7.318 May be euthyroid sick syndrome Patient reports she is compliant Recommend follow-up TSH in 6 to 8 weeks (at discretion of PCP). No medication adjustments at this time (9) Hypertension: Plan: Chronic. Continue lisinopril, BP 126/70 (10) Dyslipidemia: Plan: Chronic. -Continue Simvastatin 20mg po daily (11) Depression: Plan: Chronic -Continue Citalopram Plan: DVT prophylaxis: Lovenox SQ PT/OT recommending rehab. Case management on board. Patient is medically and hemodynamically stable for discharge. Referral placed to [facility] and [facility] Admission and Anticipated Discharge Date Admission Date: August 14, 2021 Subjective Patient seen on daily rounds today. Vocalizes no significant complaints or concerns. Denies fevers, chills, chest pain, shortness of breath, abdominal pain, nausea or vomiting. Fowler catheter remains in place. Receiving bladder training. At the time of assessment by myself, her catheter was clamped and she did have the sensation to void. It was unclamped and she drained approximately 50 cc of urine. Nursing reports that she did well with it being clamped overnight all night and yesterday when she had the urge to urinate, it was unclamped and she successfully voided. Review of Systems Review of Systems: All systems reviewed and are unremarkable except as noted in HPI and below Denies fevers, chills, headache, nasal congestion, sore throat, cough, chest pain, shortness of breath, palpitations, orthopnea, PND, abdominal pain, nausea, vomiting, diarrhea, constipation, dysuria, hematuria, frequency, back pain, joint pain or swelling, easy bruising or bleeding, skin lesions or rashes. Physical Exam Physical Exam: General: Resting comfortably in her bedside chair. NAD. HEENT: Head is AT/NC. Buccal mucosa is moist and pink Neck: No JVD. Negative hepatojugular reflex Cardiac: RRR without M/G/R Lungs: CTA without W/R/R Abdomen: Normoactive X4. Soft and nontender in all quadrants. Extremities: No peripheral clubbing cyanosis or edema Neuro: A&O X4. Cranial nerves II through XII are grossly intact. No focal neuro deficits Skin: No obvious skin lesions or rashes Psych: Appropriate affect. Pleasant and cooperative Results & Data Results & Data ([facility]) Vital Signs (Past 12 Hours) Vital Signs Temp Pulse Resp BP Pulse Ox 08/18/21 07:45 36.7 C 83 16 126/70 96 08/18/21 03:05 36.6 C 92 H 18 133/68 94 08/17/21 23:42 36.7 C 103 H 18 114/71 95 Laboratory Results No lab data today PG Care Time/CCT Total # of Minutes Spent Total Time Spent with Patient: Total time spent is greater than 50% in coordination of care (as documented) at patient's floor/unit and/or counseling patient: Coding Level of Care Code 73414 Subseq Hosp Care Lvl 2 Diagnoses Electrolyte abnormality E87.8 UTI (urinary tract infection) N39.0 Urinary retention R33.9 Constipation K59.00 Generalized weakness R53.1 Memory change R41.3 Type 2 diabetes mellitus E11.9 Hypothyroidism E03.9 Hypertension I10 Dyslipidemia E78.5 Depression F32.9
[2021-08-18] MEDS: CITALOPRAM 20 MG TAB PO SCH (21:16)
[2021-08-18] MEDS: risperiDONE 1 MG TABLET PO SCH (21:17)
[2021-08-18] MEDS: TAMSULOSIN HCL 0.4 MG CAP PO SCH (21:17)
[2021-08-19] MEDS: LEVOTHYROXINE SODIUM 100 MCG TABLET PO SCH (05:46)
[2021-08-19] MEDS: INSULIN ASPART PER UNIT SC SCH ×4 (08:00→21:29)
[2021-08-19] MEDS: CYANOCOBALAMIN (B-12) 500 MCG TABLET PO SCH (08:18)
[2021-08-19] MEDS: lisinopril 20 MG TAB PO SCH (08:18)
[2021-08-19] MEDS: CEFDINIR 300 MG CAP PO SCH ×2 (08:18→20:35)
[2021-08-19] MEDS: GABAPENTIN 300 MG CAP PO SCH (08:18)
[2021-08-19] MEDS: CALCIUM CARBONATE 1,250 MG/5 ML UDC PO SCH ×2 (08:18→20:35)
[2021-08-19] MEDS: SIMVASTATIN 20 MG TAB PO SCH (08:19)
[2021-08-19] MEDS: ENOXAPARIN INJ 40 MG/0.4 ML SYR SQ SCH (08:19)
[2021-08-19] MEDS: POLYETHYLENE (MIRALAX) 17 GM PACK PO SCH ×3 (08:19→20:36)
[2021-08-19] MEDS: DOCUSATE SODIUM/SENNA 50/8.6MG TAB PO SCH (08:29)
--- NOTE | 2021-08-19 13:28 | Hospitalist Progress Note ---
Date of Service August 19, 2021 Assessment & Plan (1) Electrolyte abnormality: Plan: 76yo female with history of CKD, HTN, DM, Gout and Hypothyroidism presenting from home with generalized weakness and falls at home. Found to have severe hypomagnesemia with Mg=0.9. Also with hypokalemia and hypophosphatemia with K=2.8 and PO4=1.7. Patient reports that she is eating well, although family member at bedside upon arrival disagrees with this statement. She denies vomi ting, diarrhea. She is not presently on PPI medication. Hypomagnesemiareplaced/resolved Hypophosphatemiareplaced/resolved Hypokalemiareplaced/resolved (2) UTI (urinary tract infection): Plan: Patient presented with a grossly infected UA: Nitrite and leukocyte esterase positive and associated leukocytosis Urine culture not obtained upfront--> Not obtained until after hospitalized and being on antibiotics, thus likely skewed. Urine culture on 08/15 showing no growth I suspect a urinary tract infection is likely the cause of her associated weakness and increased confusion (which both have improved) Rocephin given initially. Transitioned to Omnicef to complete full course (7 days) which will conclude on 08/20 Has associated debility for which PT/OT recommending rehab. Case management on board (3) Urinary retention: Plan: Urinary catheter placed upfront by prior provider due to poor output/monitor I's and O's Catheter removed 08/16 but patient unable to void. Bladder scan showed 1400 cc retention for which catheter reinserted Now on Flomax was c/o constipation-- successfully treated. Perhaps contributing to urinary retention (bladder outlet obstruction). Also with urinary tract infection which was likely contributing to retention Bladder training initiated 08/17. Doing well with this. Will remove catheter and trial of void today (08/19) (4) Constipation: Plan: Successfully treated with mag citrate Continue routine MiraLAX Can utilize fleets enemas if needed KUB obtained 08/17. No obstruction or ileus. No significant fecal burden (5) Generalized weakness: Plan: Likely related to UTI Poor oral intake and electrolyte abnormalities likely contributing (these are now normal) PT/OT have evaluated patient and are recommending rehab. Case management working on this * Case management has since spoken to a cousin who reports that both patient and her sister (with whom she lives) have unsafe living conditions. CM aware. ? need to get OOA involved * Patient's sister has also sustained a ground-level fall and is now hospitalized in this facility (6) Memory change: Plan: Patient with report of memory change discussed during prior PCP visits. She has a mini cognitive test report from 07/28/20 score 0/5. Possibly underlying cognitive impairment or dementia. In my discussion with patient today, she seems very intellectually simple. 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 Overall well controlled - last [id number]=4.3 on 07/08/20 -Hold Metformin while inpatient -Blood sugars acceptable (156 this morning) (8) Hypothyroidism: Plan: On Synthroid TSH elevated at 7.318 May be euthyroid sick syndrome Patient reports she is compliant Recommend follow-up TSH in 6 to 8 weeks (at discretion of PCP). No medication adjustments at this time (9) Hypertension: Plan: Chronic. Continue lisinopril, BP 126/70 (10) Dyslipidemia: Plan: Chronic. -Continue Simvastatin 20mg po daily (11) Depression: Plan: Chronic -Continue Citalopram Plan: DVT prophylaxis: Lovenox SQ PT/OT recommending rehab. Case management on board. Patient is medically and hemodynamically stable for discharge. Referral placed to [facility] and [facility], no note from CM today. Did reach out to assigned CM to determine if any word back from either of these facilities but have not heard back. Remove sanon for voiding trial today. Plan d/w Dr. Solitario. Admission and Anticipated Discharge Date Admission Date: August 14, 2021 Subjective Patient seen on daily rounds this morning. She is resting comfortably in bed and offers no complaints/concerns. Received bladder training yesterday. Sanon remains in place. Will plan for trial of void today. Review of Systems Review of Systems: All systems reviewed and are unremarkable except as noted in HPI and below Denies fevers, chills, headache, nasal congestion, sore throat, cough, chest pain, shortness of breath, palpitations, orthopnea, PND, abdominal pain, nausea, vomiting, diarrhea, constipation, dysuria, hematuria, frequency, back pain, joint pain or swelling, easy bruising or bleeding, skin lesions or rashes. Physical Exam Physical Exam: GENERAL: 76 yo Well-developed, well-nourished WF. NAD. LUNGS: Clear to auscultation bilaterally. No W/R/R. CARDIOVASCULAR: Regular rate and rhythm. ABDOMEN: Soft, non-tender and non-distended. BS normoactive x 4 quad. : sanon in place, clear yellow urine noted in bag EXTREMITIES: No edema. Non-tender. Peripheral pulses +2/4. NEUROLOGIC: A&O x3 PSYCHIATRIC: Cooperative. Appropriate mood and affect. SKIN: Warm, dry, intact. No rashes or lesions. Results & Data Results & Data ([facility]) Vital Signs (Past 12 Hours) Vital Signs Temp Pulse Resp BP Pulse Ox 08/19/21 06:39 36.6 C 84 18 152/75 H 98 PG Care Time/CCT Total # of Minutes Spent Total Time Spent with Patient: Total time spent is greater than 50% in coordination of care (as documented) at patient's floor/unit and/or counseling patient: Coding Level of Care Code 54940 Subseq Hosp Care Lvl 2 Diagnoses Electrolyte abnormality E87.8 UTI (urinary tract infection) N39.0 Urinary retention R33.9 Constipation K59.00 Generalized weakness R53.1 Memory change R41.3 Type 2 diabetes mellitus E11.9 Hypothyroidism E03.9 Hypertension I10 Dyslipidemia E78.5 Depression F32.9
[2021-08-19] MEDS ORDERED: MICONAZOLE NITRATE POWDER 43 GM EXT PRN (15:29)
[2021-08-19] MEDS: ACETAMINOPHEN 325 MG TAB PO PRN (17:49)
[2021-08-19] MEDS: CITALOPRAM 20 MG TAB PO SCH (20:35)
[2021-08-19] MEDS: risperiDONE 1 MG TABLET PO SCH (20:36)
[2021-08-19] MEDS: TAMSULOSIN HCL 0.4 MG CAP PO SCH (20:36)
[2021-08-20] MEDS: LEVOTHYROXINE SODIUM 100 MCG TABLET PO SCH (05:23)
[2021-08-20] MEDS: lisinopril 20 MG TAB PO SCH (08:56)
[2021-08-20] MEDS: CALCIUM CARBONATE 1,250 MG/5 ML UDC PO SCH ×2 (08:56→21:18)
[2021-08-20] MEDS: GABAPENTIN 300 MG CAP PO SCH (08:56)
[2021-08-20] MEDS: CYANOCOBALAMIN (B-12) 500 MCG TABLET PO SCH (08:56)
[2021-08-20] MEDS: CEFDINIR 300 MG CAP PO SCH ×2 (08:56→22:00)
[2021-08-20] MEDS: ENOXAPARIN INJ 40 MG/0.4 ML SYR SQ SCH (08:56)
[2021-08-20] MEDS: SIMVASTATIN 20 MG TAB PO SCH (08:56)
[2021-08-20] MEDS: INSULIN ASPART PER UNIT SC SCH ×4 (09:02→21:21)
[2021-08-20] MEDS: POLYETHYLENE (MIRALAX) 17 GM PACK PO SCH ×2 (09:04→21:22)
[2021-08-20] MEDS: DOCUSATE SODIUM/SENNA 50/8.6MG TAB PO SCH (09:04)
--- NOTE | 2021-08-20 14:35 | Hospitalist Progress Note ---
Date of Service August 20, 2021 Assessment & Plan (1) Electrolyte abnormality: Plan: 76yo female with history of CKD, HTN, DM, Gout and Hypothyroidism presenting from home with generalized weakness and falls at home. Found to have severe hypomagnesemia with Mg=0.9. Also with hypokalemia and hypophosphatemia with K=2.8 and PO4=1.7. Patient reports that she is eating well, although family member at bedside upon arrival disagrees with this statement. She denies vom iting, diarrhea. She is not presently on PPI medication. Hypomagnesemiareplaced/resolved Hypophosphatemiareplaced/resolved Hypokalemiareplaced/resolved (2) UTI (urinary tract infection): Plan: Patient presented with a grossly infected UA: Nitrite and leukocyte esterase positive and associated leukocytosis Urine culture not obtained upfront--> Not obtained until after hospitalized and being on antibiotics, thus likely skewed. Urine culture on 08/15 showing no growth I suspect a urinary tract infection is likely the cause of her associated weakness and increased confusion (which both have improved) Rocephin given initially. Transitioned to Omnicef to complete full course (7 days) which will conclude on 08/20 Has associated debility for which PT/OT recommending rehab. Case management on board (3) Urinary retention: Plan: Urinary catheter placed upfront by prior provider due to poor output/monitor I's and O's Catheter removed 08/16 but patient unable to void. Bladder scan showed 1400 cc retention for which catheter reinserted Now on Flomax was c/o constipation-- successfully treated. Perhaps contributing to urinary retention (bladder outlet obstruction). Also with urinary tract infection which was likely contributing to retention Bladder training initiated 08/17 through 08/18 and sanon removed 08/18. Unfortunately, pt continues to retain. Will replace sanon and will need urology eval. (4) Constipation: Plan: Successfully treated with mag citrate Continue routine MiraLAX Can utilize fleets enemas if needed KUB obtained 08/17. No obstruction or ileus. No significant fecal burden (5) Generalized weakness: Plan: Likely related to UTI Poor oral intake and electrolyte abnormalities likely contributing (these are now normal) PT/OT have evaluated patient and are recommending rehab. Case management working on this * Case management has since spoken to a cousin who reports that both patient and her sister (with whom she lives) have unsafe living conditions. CM aware. ? need to get OOA involved * Patient's sister has also sustained a ground-level fall and is now hospitalized in this facility (6) Memory change: Plan: Patient with report of memory change discussed during prior PCP visits. She has a mini cognitive test report from 07/28/20 score 0/5. Possibly underlying cognitive impairment or dementia. In my discussion with patient today, she seems very intellectually simple. 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 Overall well controlled - last [id number]=7.3 on 07/08/20 -Hold Metformin while inpatient -Blood sugars acceptable (156 this morning) (8) Hypothyroidism: Plan: On Synthroid TSH elevated at 7.318 May be euthyroid sick syndrome Patient reports she is compliant Recommend follow-up TSH in 6 to 8 weeks (at discretion of PCP). No medication adjustments at this time (9) Hypertension: Plan: Chronic. -Continue lisinopril, BP 126/70 (10) Dyslipidemia: Plan: Chronic. -Continue Simvastatin 20mg po daily (11) Depression: Plan: Chronic -Continue Citalopram Plan: DVT prophylaxis: Lovenox SQ PT/OT recommending rehab. Case management on board. Patient is medically and hemodynamically stable for discharge. Multiple referrals sent to SNFs for rehab . [facility] able to take patient on Monday if she is willing to get COVID booster. We will discussed with patient today and order booster if she is agreeable. This will allow case management to submit for authorization in order to plan for discharge on Monday. Plan d/w Dr. Solitario. Admission and Anticipated Discharge Date Admission Date: August 14, 2021 Subjective Patient seen on daily rounds this morning. She is resting comfortably in bed and offers no complaints/concerns. Received bladder training 08/18, did well, sanon removed 08/19 for trial of void. Unfortunately, notified today by RN that she is still having issues with urinary retention. Was bladder scanned today for 350 ml after voiding 150 ml. Sanon to be replaced by nursing staff and she will need urology follow up. Review of Systems Review of Systems: All systems reviewed and are unremarkable except as noted in HPI and below Denies fevers, chills, headache, nasal congestion, sore throat, cough, chest brenda n, shortness of breath, palpitations, orthopnea, PND, abdominal pain, nausea, vomiting, diarrhea, constipation, dysuria, hematuria, frequency, back pain, joint pain or swelling, easy bruising or bleeding, skin lesions or rashes. Physical Exam Physical Exam: GENERAL: 76 yo Well-developed, well-nourished WF. NAD. LUNGS: Clear to auscultation bilaterally. No W/R/R. CARDIOVASCULAR: Regular rate and rhythm. ABDOMEN: Soft, non-tender and non-distended. BS normoactive x 4 quad. EXTREMITIES: No edema. Non-tender. Peripheral pulses +2/4. NEUROLOGIC: A&O x3 PSYCHIATRIC: Cooperative. Appropriate mood and affect. SKIN: Warm, dry, intact. No rashes or lesions. Results & Data Results & Data ([facility]) Vital Signs (Past 12 Hours) Vital Signs Temp Pulse Resp BP BP Pulse Ox 08/20/21 12:51 36.7 C 97 H 18 102/63 96 08/20/21 07:21 36.7 C 71 16 110/62 94 PG Care Time/CCT Total # of Minutes Spent Total Time Spent with Patient: Total time spent is greater than 50% in coordination of care (as documented) at patient's floor/unit and/or counseling patient: Coding Level of Care Code 98806 Subseq Hosp Care Lvl 2 Diagnoses Electrolyte abnormality E87.8 UTI (urinary tract infection) N39.0 Urinary retention R33.9 Constipation K59.00 Generalized weakness R53.1 Memory change R41.3 Type 2 diabetes mellitus E11.9 Hypothyroidism E03.9 Hypertension I10 Dyslipidemia E78.5 Depression F32.9
[2021-08-20] MEDS ORDERED: COVID-19 VACC, TRIS(PFIZER)/PF 30 MCG/0.3 ML VIAL IM ONE (15:16)
[2021-08-20] MEDS: CITALOPRAM 20 MG TAB PO SCH (21:19)
[2021-08-20] MEDS: risperiDONE 1 MG TABLET PO SCH (21:22)
[2021-08-20] MEDS: TAMSULOSIN HCL 0.4 MG CAP PO SCH (21:23)
[2021-08-21] MEDS: LEVOTHYROXINE SODIUM 100 MCG TABLET PO SCH (06:01)
[2021-08-21] MEDS: ENOXAPARIN INJ 40 MG/0.4 ML SYR SQ SCH (08:29)
[2021-08-21] MEDS: CYANOCOBALAMIN (B-12) 500 MCG TABLET PO SCH (08:29)
[2021-08-21] MEDS: GABAPENTIN 300 MG CAP PO SCH (08:29)
[2021-08-21] MEDS: CALCIUM CARBONATE 1,250 MG/5 ML UDC PO SCH ×2 (08:29→19:32)
[2021-08-21] MEDS: POLYETHYLENE (MIRALAX) 17 GM PACK PO SCH ×2 (08:30→19:28)
[2021-08-21] MEDS: lisinopril 20 MG TAB PO SCH (08:30)
[2021-08-21] MEDS: INSULIN ASPART PER UNIT SC SCH ×4 (08:31→22:46)
[2021-08-21] MEDS: DOCUSATE SODIUM/SENNA 50/8.6MG TAB PO SCH (08:35)
[2021-08-21] MEDS: SIMVASTATIN 20 MG TAB PO SCH (08:36)
--- NOTE | 2021-08-21 10:41 | Hospitalist Progress Note ---
Date of Service August 21, 2021 Assessment & Plan (1) Urinary retention: Plan: Urinary catheter placed upfront by prior provider due to poor output/monitor I's and O's Catheter removed 08/16 but patient unable to void. Bladder scan showed 1400 cc retention for which catheter reinserted Now on Flomax Also with urinary tract infection which likely contributing to retention Bladder training initiated 08/17 through 08/18 and sanon removed 08/18. Unfortunately, pt continues to retain. Will replace sanon and will need urology eval which could be done as outpatient (2) UTI (urinary tract infection): Plan: Patient presented with a grossly infected UA: Nitrite and leukocyte esterase positive and associated leukocytosis Urine culture not obtained upfront--> Not obtained until after hospitalized and being on antibiotics, thus likely skewed. Urine culture on 08/15 showing no growth I suspect a urinary tract infection is likely the cause of her associated weakness and increased confusion (which both have improved) Rocephin given initially. Transitioned to Omnicef to complete full course (7 days) which concluded 08/20 Has associated debility for which PT/OT recommending rehab. Case management on board (3) Electrolyte abnormality: Plan: RESOLVED 76yo female with history of CKD, HTN, DM, Gout and Hypothyroidism presenting from home with generalized weakness and falls at home. Found to have severe hypomagnesemia with Mg=0.9. Also with hypokalemia and hypophosphatemia with K=2.8 and PO4=1.7. Patient reports that she is eating well, although family member at bedside upon arrival disagrees with this statement. She denies vomiting, diarrhea. She is not presently on PPI medication. Hypomagnesemiareplaced/resolved Hypophosphatemiareplaced/resolved Hypokalemiareplaced/resolved (4) Constipation: Plan: Successfully treated with mag citrate Continue routine MiraLAX Can utilize fleets enemas if needed KUB obtained 08/17. No obstruction or ileus. No significant fecal burden (5) Generalized weakness: Plan: Likely related to UTI Poor oral intake and electrolyte abnormalities likely contributing (these are now normal) PT/OT have evaluated patient and are recommending rehab. Case management working on this * Case management has since spoken to a cousin who reports that both patient and her sister (with whom she lives) have unsafe living conditions. CM aware. ? need to get OOA involved * Patient's sister has also sustained a ground-level fall and is now hospital ized in this facility (6) Memory change: Plan: Patient with report of memory change discussed during prior PCP visits. She had a mini cognitive test report from 07/28/20 score 0/5. Possibly underlying cognitive impairment or dementia. In my discussion with patient today, she seems very intellectually simple. 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 Overall well controlled - last [id number]=1.3 on 07/08/20 -Hold Metformin while inpatient -Blood sugars acceptable (156 this morning) (8) Hypothyroidism: Plan: On Synthroid TSH elevated at 7.318 May be euthyroid sick syndrome Patient reports she is compliant Recommend follow-up TSH in 6 to 8 weeks (at discretion of PCP). No medication adjustments at this time (9) Hypertension: Plan: Chronic. -Continue lisinopril, BP 126/70 (10) Dyslipidemia: Plan: Chronic. -Continue Simvastatin 20mg po daily (11) Depression: Plan: Chronic -Continue Citalopram Plan: DVT prophylaxis: Lovenox SQ PT/OT recommending rehab. Case management on board. Patient is medically and hemodynamically stable for discharge. Multiple referrals sent to SNFs for rehab. [facility] able to take patient on Monday if she is willing to get COVID booster which she is agreeable. Also spoke with her sister (who is also currently hospitalized) with whom the patient lives and she is also agreeable to her receiving the vaccine understanding it is needed for rehab. D/w pt again at bedside rounds on 08/21, pt agreeable for booster, d/w nursing and she will administer once it is reordered. Plan d/w Dr. Solitario. Admission and Anticipated Discharge Date Admission Date: August 14, 2021 Subjective Patient seen on daily rounds this morning. She is resting comfortably in bed and offers no complaints/concerns. SNF is requesting pt get COVID booster prior to d/c. D/w pt yesterday and her sister, both of which were agreeable. Of note, pt was fulled vaccinated and boosted last in Jan 2021. Notified by RN yesterday afternoon that patient was refusing the booster. Spoke again with patient this morning and she once again stated that she was agreeable to getting the injection. Review of Systems Review of Systems: All systems reviewed and are unremarkable except as noted in HPI and below Denies fevers, chills, headache, nasal congestion, sore throat, cough, chest pain, shortness of breath, palpitations, orthopnea, PND, abdominal pain, nausea, vomiting, diarrhea, constipation, dysuria, hematuria, frequency, back pain, joint pain or swelling, easy bruising or bleeding, skin lesions or rashes. Physical Exam Physical Exam: GENERAL: 76 yo Well-developed, well-nourished WF. NAD. LUNGS: Clear to auscultation bilaterally. No W/R/R. CARDIOVASCULAR: Regular rate and rhythm. ABDOMEN: Soft, non-tender and non-distended. BS normoactive x 4 quad. EXTREMITIES: No edema. Non-tender. Peripheral pulses +2/4. NEUROLOGIC: A&O x3 PSYCHIATRIC: Cooperative. Appropriate mood and affect. SKIN: Warm, dry, intact. No rashes or lesions. Results & Data Results & Data ([facility]) Vital Signs (Past 12 Hours) Vital Signs Temp Pulse Resp BP Pulse Ox 08/21/21 06:28 36.7 C 77 16 111/68 95 08/20/21 23:07 36.5 C 93 H 18 94/58 L 96 PG Care Time/CCT Total # of Minutes Spent Total Time Spent with Patient: Total time spent is greater than 50% in coordination of care (as documented) at patient's floor/unit and/or counseling patient: Coding Level of Care Code 44047 Subseq Hosp Care Lvl 2 Diagnoses Electrolyte abnormality E87.8 UTI (urinary tract infection) N39.0 Urinary retention R33.9 Constipation K59.00 Generalized weakness R53.1 Memory change R41.3 Type 2 diabetes mellitus E11.9 Hypothyroidism E03.9 Hypertension I10 Dyslipidemia E78.5 Depression F32.9
[2021-08-21] MEDS ORDERED: COVID-19 VACC, TRIS(PFIZER)/PF 30 MCG/0.3 ML VIAL IM ONE (12:00)
[2021-08-21] MEDS: ACETAMINOPHEN 325 MG TAB PO PRN (17:36)
[2021-08-21] MEDS: risperiDONE 1 MG TABLET PO SCH (19:28)
[2021-08-21] MEDS: CITALOPRAM 20 MG TAB PO SCH (19:29)
[2021-08-21] MEDS: TAMSULOSIN HCL 0.4 MG CAP PO SCH (19:29)
[2021-08-22] MEDS: LEVOTHYROXINE SODIUM 100 MCG TABLET PO SCH (05:53)
[2021-08-22] MEDS: SIMVASTATIN 20 MG TAB PO SCH (08:47)
[2021-08-22] MEDS: CYANOCOBALAMIN (B-12) 500 MCG TABLET PO SCH (08:47)
[2021-08-22] MEDS: lisinopril 20 MG TAB PO SCH (08:47)
[2021-08-22] MEDS: CALCIUM CARBONATE 1,250 MG/5 ML UDC PO SCH ×2 (08:47→21:27)
[2021-08-22] MEDS: GABAPENTIN 300 MG CAP PO SCH (08:47)
[2021-08-22] MEDS: POLYETHYLENE (MIRALAX) 17 GM PACK PO SCH ×2 (08:48→21:26)
[2021-08-22] MEDS: ENOXAPARIN INJ 40 MG/0.4 ML SYR SQ SCH (08:48)
[2021-08-22] MEDS: INSULIN ASPART PER UNIT SC SCH ×4 (08:49→21:41)
[2021-08-22] MEDS: DOCUSATE SODIUM/SENNA 50/8.6MG TAB PO SCH (08:53)
--- NOTE | 2021-08-22 10:38 | Hospitalist Progress Note ---
Date of Service August 22, 2021 Assessment & Plan (1) Urinary retention: Plan: Urinary catheter placed upfront by prior provider due to poor output/monitor I's and O's Catheter removed 08/16 but patient unable to void. Bladder scan showed 1400 cc retention for which catheter reinserted Started on Flomax which has been continued Also with presented w/ urinary tract infection which likely contributing to retention Bladder training initiated 08/17 through 08/18 and sanon removed 08/18. Unfortunately, pt continued to retain, sanon reinserted 08/21 and she will need urology eval which can be arranged as outpatient (2) UTI (urinary tract infection): Plan: Patient presented with a grossly infected UA: Nitrite and leukocyte esterase positive and associated leukocytosis Urine culture not obtained upfront--> Not obtained until after hospitalized and being on antibiotics, thus likely skewed. Urine culture on 08/15 showing no growth I suspect a urinary tract infection is likely the cause of her associated weakness and increased confusion (which both have improved) Rocephin given initially. Transitioned to Omnicef and completed total of 7 day course on 08/20 Has associated debility for which PT/OT recommending rehab. Case management on board (3) Electrolyte abnormality: Plan: RESOLVED 76yo female with history of CKD, HTN, DM, Gout and Hypothyroidism presenting from home with generalized weakness and falls at home. Found to have severe hypomagnesemia with Mg=0.9. Also with hypokalemia and hypophosphatemia with K=2.8 and PO4=1.7. Patient reports that she is eating well, although family member at bedside upon arrival disagrees with this statement. She denies vomiting, diarrhea. She is not presently on PPI medication. Hypomagnesemiareplaced/resolved Hypophosphatemiareplaced/resolved Hypokalemiareplaced/resolved (4) Constipation: Plan: Successfully treated with mag citrate Continue routine MiraLAX Can utilize fleets enemas if needed KUB obtained 08/17. No obstruction or ileus. No significant fecal burden (5) Generalized weakness: Plan: Likely related to UTI Poor oral intake and electrolyte abnormalities likely contributing (these are now normal) PT/OT have evaluated patient and are recommending rehab. Case management working on this * Case management has since spoken to a cousin who reports that both patient and her sister (with whom she lives) have unsafe living conditions. CM aware. ? need to get OOA involved * Patient's sister has also sustained a ground-level fall and is now hospitalized in this facility * Tentative plan is for [facility] on 08/23 (6) Memory change: Plan: Patient with report of memory change discussed during prior PCP visits. She had a mini cognitive test report from 07/28/20 score 0/5. Possibly underlying cognitive impairment or dementia. In my discussion with patient today, she seems very intellectually simple. 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 Overall well controlled - last [id number]=1.3 on 07/08/20 -Hold Metformin while inpatient -Blood sugars acceptable (156 this morning) (8) Hypothyroidism: Plan: On Synthroid TSH elevated at 7.318 May be euthyroid sick syndrome Patient reports she is compliant Recommend follow-up TSH in 6 to 8 weeks (at discretion of PCP). No medication adjustments at this time (9) Hypertension: Plan: Chronic. -Continue lisinopril, BP 126/70 (10) Dyslipidemia: Plan: Chronic. -Continue Simvastatin 20mg po daily (11) Depression: Plan: Chronic -Continue Citalopram Plan: DVT prophylaxis: Lovenox SQ PT/OT recommending rehab. Case management on board. Patient is medically and hemodynamically stable for discharge. Multiple referrals sent to SNFs for rehab. [facility] able to take patient on Monday if she is willing to get COVID booster which she received on 08/21. Plan d/w Dr. Solitario. Admission and Anticipated Discharge Date Admission Date: August 14, 2021 Subjective Patient seen on daily rounds this morning. She is resting comfortably in bed and offers no complaints/concerns. COVID booster given 08/21. Tolerating urinary catheter. Review of Systems Review of Systems: All systems reviewed and are unremarkable except as noted in HPI and below Denies fevers, chills, headache, nasal congestion, sore throat, cough, chest pain, shortness of breath, palpitations, orthopnea, PND, abdominal pain, nausea, vomiting, diarrhea, constipation, dysuria, hematuria, frequency, back pain, joint pain or swelling, easy bruising or bleeding, skin lesions or rashes. Physical Exam Physical Exam: GENERAL: 76 yo Well-developed, well-nourished WF. NAD. LUNGS: Clear to auscultation bilaterally. No W/R/R. CARDIOVASCULAR: Regular rate and rhythm. ABDOMEN: Soft, non-tender and non-distended. BS normoactive x 4 quad. : sanon in place, draining clear yellow urine EXTREMITIES: No edema. Non-tender. Peripheral pulses +2/4. NEUROLOGIC: A&O x3 PSYCHIATRIC: Cooperative. Appropriate mood and affect. SKIN: Warm, dry, intact. No rashes or lesions. Results & Data Results & Data ([facility]) Vital Signs (Past 12 Hours) Vital Signs Temp Pulse Resp BP Pulse Ox 08/22/21 08:10 36.4 C L 78 18 123/75 97 PG Care Time/CCT Total # of Minutes Spent Total Time Spent with Patient: Total time spent is greater than 50% in coordination of care (as documented) at patient's floor/unit and/or counseling patient: Coding Level of Care Code 01897 Subseq Hosp Care Lvl 1 Diagnoses Urinary retention R33.9 UTI (urinary tract infection) N39.0 Electrolyte abnormality E87.8 Constipation K59.00 Generalized weakness R53.1 Memory change R41.3 Type 2 diabetes mellitus E11.9 Hypothyroidism E03.9 Hypertension I10 Dyslipidemia E78.5 Depression F32.9
[2021-08-22] MEDS: ACETAMINOPHEN 325 MG TAB PO PRN (10:52)
[2021-08-22] MEDS: risperiDONE 1 MG TABLET PO SCH (21:27)
[2021-08-22] MEDS: TAMSULOSIN HCL 0.4 MG CAP PO SCH (21:28)
[2021-08-22] MEDS: CITALOPRAM 20 MG TAB PO SCH (21:29)
[2021-08-23] MEDS: LEVOTHYROXINE SODIUM 100 MCG TABLET PO SCH (05:43)
[2021-08-23] MEDS: ACETAMINOPHEN 325 MG TAB PO PRN (05:43)
[2021-08-23] MEDS: lisinopril 20 MG TAB PO SCH (08:37)
[2021-08-23] MEDS: SIMVASTATIN 20 MG TAB PO SCH (08:37)
[2021-08-23] MEDS: ENOXAPARIN INJ 40 MG/0.4 ML SYR SQ SCH (08:38)
[2021-08-23] MEDS: GABAPENTIN 300 MG CAP PO SCH (08:38)
[2021-08-23] MEDS: CALCIUM CARBONATE 1,250 MG/5 ML UDC PO SCH ×2 (08:38→19:39)
[2021-08-23] MEDS: CYANOCOBALAMIN (B-12) 500 MCG TABLET PO SCH (08:38)
[2021-08-23] MEDS: POLYETHYLENE (MIRALAX) 17 GM PACK PO SCH ×2 (08:39→19:39)
[2021-08-23] MEDS: INSULIN ASPART PER UNIT SC SCH ×4 (08:50→22:36)
[2021-08-23] MEDS: DOCUSATE SODIUM/SENNA 50/8.6MG TAB PO SCH (09:22)
--- NOTE | 2021-08-23 14:45 | Hospitalist Progress Note ---
Date of Service August 23, 2021 Assessment & Plan (1) Urinary retention: Plan: Urinary catheter placed upfront by prior provider due to poor output/monitor I's and O's Catheter removed 08/16 but patient unable to void. Bladder scan showed 1400 cc retention for which catheter reinserted Started on Flomax which has been continued Also with presented w/ urinary tract infection which likely contributing to retention Bladder training initiated 08/17 through 08/18 and sanon removed 08/18. Unfortunately, pt continued to retain, sanon reinserted 08/21 and she will need urology eval (failed TOVx2) Since she remains inhouse, will consult urology so she can become established with the group and plan for o/p follow up (2) UTI (urinary tract infection): Plan: Patient presented with a grossly infected UA: Nitrite and leukocyte esterase positive and associated leukocytosis Urine culture not obtained upfront--> Not obtained until after hospitalized and being on antibiotics, thus likely skewed. Urine culture on 08/15 showing no growth I suspect a urinary tract infection is likely the cause of her associated weakness and increased confusion (which both have improved) Rocephin given initially. Transitioned to Omnicef and completed total of 7 day course on 08/20 Has associated debility for which PT/OT recommending rehab. Case management on board (3) Electrolyte abnormality: Plan: RESOLVED 76yo female with history of CKD, HTN, DM, Gout and Hypothyroidism presenting from home with generalized weakness and falls at home. Found to have severe hypomagnesemia with Mg=0.9. Also with hypokalemia and hypophosphatemia with K=2.8 and PO4=1.7. Patient reports that she is eating well, although family member at bedside upon arrival disagrees with this statement. She denies vomiting, diarrhea. She is not presently on PPI medication. Hypomagnesemiareplaced/resolved Hypophosphatemiareplaced/resolved Hypokalemiareplaced/resolved (4) Constipation: Plan: Successfully treated with mag citrate Continue routine MiraLAX Can utilize fleets enemas if needed KUB obtained 08/17. No obstruction or ileus. No significant fecal burden (5) Generalized weakness: Plan: Likely related to UTI Poor oral intake and electrolyte abnormalities likely contributing (these are now normal) PT/OT have evaluated patient and are recommending rehab. Case management working on this * Case management has since spoken to a cousin who reports that both patient and her sister (with whom she lives) have unsafe living conditions. CM aware. ? need to get OOA involved * Patient's sister has also sustained a ground-level fall and is now hospitalized in this facility * Tentative plan is for [facility] on 08/23 (6) Memory change: Plan: Patient with report of memory change discussed during prior PCP visits. She had a mini cognitive test report from 07/28/20 score 0/5. Possibly underlying cognitive impairment or dementia. In my discussion with patient today, she seems very intellectually simple. 08/16: Spoke to Merle (patient's sister) who spoke to patient on the phone and reports that she seems back to her baseline [employer], she did have increased confusion likely due to infectious/metabolic encephalopathy from UTI- resolved and back to baseline (7) Type 2 diabetes mellitus: Plan: Blood sugar =148. Overall well controlled - last [id number] on 07/08/20 Hold Metformin while inpatient Blood sugars acceptable (156 this morning) (8) Hypothyroidism: Plan: On Synthroid TSH elevated at 7.318 May be euthyroid sick syndrome Patient reports she is compliant Recommend follow-up TSH in 6 to 8 weeks (at discretion of PCP). No medication adjustments at this time (9) Hypertension: Plan: Chronic. Continue lisinopril (10) Dyslipidemia: Plan: Chronic. Continue Simvastatin 20mg po daily (11) Depression: Plan: Chronic Continue Citalopram Plan: DVT prophylaxis: Lovenox SQ PT/OT recommending rehab. Case management on board. Patient is medically and hemodynamically stable for discharge. Multiple referrals sent to SNFs for rehab. [facility] able to take patient on Monday if she is willing to get COVID booster which she received on 08/21. Per CM, insurance authorization is still pending. Plan d/w Dr. Solitario. Admission and Anticipated Discharge Date Admission Date: August 14, 2021 Subjective Patient seen on daily rounds this morning. She is resting comfortably in bed and offers no complaints/concerns. COVID booster given 08/21. Tolerating urinary catheter. She has been accepted and has a bed at [facility] for rehab but is still waiting for her insurance authorization to come through. Review of Systems Review of Systems: All systems reviewed and are unremarkable except as noted in HPI and below Denies fevers, chills, headache, nasal congestion, sore throat, cough, chest pain, shortness of breath, palpitations, orthopnea, PND, abdominal pain, nausea, vomiting, diarrhea, constipation, dysuria, hematuria, frequency, back pain, joint pain or swelling, easy bruising or bleeding, skin lesions or rashes. Physical Exam Physical Exam: GENERAL: 76 yo Well-developed, well-nourished WF. NAD. LUNGS: Clear to auscultation bilaterally. No W/R/R. CARDIOVASCULAR: Regular rate and rhythm. ABDOMEN: Soft, non-tender and non-distended. BS normoactive x 4 quad. : sanon in place, draining clear yellow urine EXTREMITIES: No edema. Non-tender. Peripheral pulses +2/4. NEUROLOGIC: A&O x3 PSYCHIATRIC: Cooperative. Appropriate mood and affect. SKIN: Warm, dry, intact. No rashes or lesions. Results & Data Results & Data ([facility]) Vital Signs (Past 12 Hours) Vital Signs Temp Pulse Resp BP Pulse Ox 08/23/21 06:37 36.5 C 63 16 103/63 95 PG Care Time/CCT Total # of Minutes Spent Total Time Spent with Patient: Total time spent is greater than 50% in coordination of care (as documented) at patient's floor/unit and/or counseling patient: Coding Level of Care Code 01780 Subseq Hosp Care Lvl 2 Diagnoses Urinary retention R33.9 UTI (urinary tract infection) N39.0 Electrolyte abnormality E87.8 Constipation K59.00 Generalized weakness R53.1 Memory change R41.3 Type 2 diabetes mellitus E11.9 Hypothyroidism E03.9 Hypertension I10 Dyslipidemia E78.5 Depression F32.9
[2021-08-23] MEDS: CITALOPRAM 20 MG TAB PO SCH (19:40)
[2021-08-23] MEDS: risperiDONE 1 MG TABLET PO SCH (19:41)
[2021-08-23] MEDS: TAMSULOSIN HCL 0.4 MG CAP PO SCH (19:42)
[2021-08-24] MEDS: LEVOTHYROXINE SODIUM 100 MCG TABLET PO SCH (05:45)
[2021-08-24] MEDS: POLYETHYLENE (MIRALAX) 17 GM PACK PO SCH (09:14)
[2021-08-24] MEDS: ENOXAPARIN INJ 40 MG/0.4 ML SYR SQ SCH (09:14)
[2021-08-24] MEDS: lisinopril 20 MG TAB PO SCH (09:14)
[2021-08-24] MEDS: CYANOCOBALAMIN (B-12) 500 MCG TABLET PO SCH (09:14)
[2021-08-24] MEDS: GABAPENTIN 300 MG CAP PO SCH (09:15)
[2021-08-24] MEDS: SIMVASTATIN 20 MG TAB PO SCH (09:15)
[2021-08-24] MEDS: CALCIUM CARBONATE 1,250 MG/5 ML UDC PO SCH (09:15)
[2021-08-24] MEDS: INSULIN ASPART PER UNIT SC SCH ×2 (09:16→13:07)
[2021-08-24] MEDS: DOCUSATE SODIUM/SENNA 50/8.6MG TAB PO SCH (09:17)
--- NOTE | 2021-08-24 11:51 | Discharge Summary ---
Date of Service August 24, 2021 Admission HPI Per Admitting Provider Kristine Novoa is a 76yo female with history of HTN, HLP, GERD, DM and Hypothyroidism with weakness. Patient is a poor historian and doesn't full recollect the events prior to arrival. She lives with her sister who assists her with medications and ADLs. Patient had a fall yesterday secondary to some weakness. Today she fell in her living room and was unable to get up due to weakness. Her cousin had to assist her in getting up. She then became very anxious. 911 was called. In the ER patient afebrile, HD stable, tachypneic. She has no complaints at this time. Denies pain, chest pain, cough, abdominal pain, nausea, vomiting, diarrhea or constipation. She states that she does have some shortness of breath at times. Also complaining of pain in the right great toe. ER Course: Mag x 1gm, KCL x 60mEq Principal Diagnosis Weakness, UTI, urinary retention Discharge Exam General: Oriented to name NAD. Cooperative. HEENT: Atraumatic, normocephalic. Vision grossly intact. Pulm: CTAB A&P. -wheezes, -rales, -rhonchi. Symmetrical chest rise. No increase in work of breathing. No respiratory distress. Cardiac: RRR, -mrg. Radial pulses intact and symmetrical. Abdominal: Nontender, nondistended, soft. BS present. : Sanon in place draining yellow urine Discharge Data Allergies Allergy/AdvReac Type Severity Reaction Status Date / Time No Known Allergies Allergy Unknown Verified 08/14/21 21:21 Consultations 08/14/21 23:12 ED Decision to Admit Stat Ordered Studies 08/14/21 20:54 CT head/brain wo con Stat Hospital Course (1) Urinary retention: Kristine is a 76-year-old female who was admitted with weakness and was found to have a UTI, urinary retention, and electrolyte abnormalities during admission. She completed a course of antibiotics for her UTI on 08/20 (Rocephin transition to Omnicef). Electrolyte abnormalities resolved with repletion, fluids, and supportive care. P.o. intake had improved during admission. Patient did have generalized weakness and was recommended for rehab. Prior to rehab placement urology was consulted for urinary retention, patient did have Sanon removal and attempts to void on and again on follow bladder training but unfortunately had to be replaced 08/21. Sanon in place at discharge, and patient w follow-up with urology as outpatient. To do as outpatient, 1. Follow-up with urology 2. Routine PCP follow-up 3. Repeat TSH in 4 to 6 weeks Urinary retention Urinary catheter placed upfront by prior provider due to poor output/monitor I's and O's Catheter removed 08/16 but patient unable to void. Bladder scan showed 1400 cc retention for which catheter reinserted Started on Flomax which has been continued Also with presented w/ urinary tract infection which likely contributing to retention Bladder training initiated 08/17 through 08/18 and sanon removed 08/18. Unfortunately, pt continued to retain, sanon reinserted 08/21 and she will need urology eval (failed TOVx2) Urology consulted during admission. Will have outpatient follow-up and discharge with Sanon in place (2) UTI (urinary tract infection): Patient presented with a grossly infected UA: Nitrite and leukocyte esterase positive and associated leukocytosis Urine culture not obtained upfront--> Not obtained until after hospitalized and being on antibiotics, thus likely skewed. Urine culture on 08/15 showing no growth I suspect a urinary tract infection is likely the cause of her associated weakness and increased confusion (which both have improved) Rocephin given initially. Transitioned to Omnicef and completed total of 7 day course on 08/20 Has associated debility for which PT/OT recommending rehab. Case management on board (3) Electrolyte abnormality: RESOLVED 76yo female with history of CKD, HTN, DM, Gout and Hypothyroidism presenting from home with generalized weakness and falls at home. Found to have severe hypomagnesemia with Mg=0.9. Also with hypokalemia and hypophosphatemia with K=2.8 and PO4=1.7. Patient reports that she is eating well, although family member at bedside upon arrival disagrees with this statement. She denies vomiting, diarrhea. She is not presently on PPI medication. Hypomagnesemiareplaced/resolved Hypophosphatemiareplaced/resolved Hypokalemiareplaced/resolved (4) Constipation: Successfully treated with mag citrate Continue routine MiraLAX Can utilize fleets enemas if needed KUB obtained 08/17. No obstruction or ileus. No significant fecal burden (5) Generalized weakness: Likely related to UTI Poor oral intake and electrolyte abnormalities likely contributing (these are now normal) PT/OT have evaluated patient and are recommending rehab. Charge to further care to [place] * Case management has since spoken to a cousin who reports that both patient and her sister (with whom she lives) have unsafe living conditions. CM aware. * Patient's sister has also sustained a ground-level fall and is now hospitalized in this facility (6) Memory change: Patient with report of memory change discussed during prior PCP visits. She had a mini cognitive test report from 07/28/20 score 0/5. Possibly underlying cognitive impairment or dementia. 08/16: Spoke to Merle (patient's sister) who spoke to patient on the phone and reports that she seems back to her baseline [employer], she did have increased confusion likely due to infectious/metabolic encephalopathy from UTI- resolved and back to baseline (7) Type 2 diabetes mellitus: Blood sugar =148. Overall well controlled - last [id number] on 07/08/20 Hold Metformin while inpatient Blood sugars acceptable (156 this morning) (8) Hypothyroidism: On Synthroid TSH elevated at 7.318 May be euthyroid sick syndrome Patient reports she is compliant Recommend follow-up TSH in 6 to 8 weeks (at discretion of PCP). No medication adjustments at this time (9) Hypertension: Chronic. Continue lisinopril (10) Dyslipidemia: Chronic. Continue Simvastatin 20mg po daily (11) Depression: Chronic Continue Citalopram DVT prophylaxis: Lovenox SQ PT/OT recommending rehab. Case management on board. Patient is medically and hemodynamically stable for discharge. Discharge to [place]. Total Time Total Time Spent Total Time Spent (In Minutes): 35 Discharge Plan Discharge Items Patient Disposition: Transfer Inpatient Rehab Fac Reason For Visit: HYPOMAGNESMIA, WEAKNESS Discharge Diagnosis: Weakness, electrolyte derangements, UTI Activity: As commented below Non-emergency contact: Primary Care Provider Call non-emergency contact if: your symptoms worsen and your pain is worsening Follow-up/Referrals: Drake Chilel DO [Primary Care Provider] - 08/31/21 11:00 am (Appointment with Tessie Elkins PA-C) Diet: Carb Consistent or DM2 Addtl Attending Provider Instructions: You were seen in the hospital for weakness. You are found to have a urinary tract infection with urinary retention and low electrolytes. Your electrolytes were repleted with supplementation and improved. You did have an infected appearing urine on admission, and were treated empirically with an antibiotic of which a 7-day course was completed on 08/20. You had urinary retention which unfortunately persisted despite attempts to bladder train and remove Sanon on 08 17 and 08 18. A Sanon catheter was reinserted 08/21, and follow-up is being scheduled for you with a urologist as an outpatient. You are being discharged to further care at [facility]. Additional antibiotics and medications have not been prescribed at this time. You should be seen by your primary care physician for a follow-up appointment within 1 week If you develop any new or worsening symptoms including fever, chills, sweats, chest pain, chest pressure, difficulty breathing, uncontrolled nausea/vomiting, rash, wheezing, passing out or nearly passing out, bleeding, black/bloody bowel movements, or other new or concerning symptoms please call your primary care physician, or call 911 for re-evaluation in the emergency department if you are very concerned. Pending Studies at Discharge: No Stand-Alone Forms: My [facility] Skilled Items Patient informed of condition?: Yes DNR: Yes Discharge Level of Care: Acute rehab Communicable Disease: No Discharge Prognosis: Stable Lines: None Urinary Catheter: Yes Medications and DC Order Prescriptions: Continued lisinopril 20 mg tablet 20 mg PO DAILY Qty: 90 RF: 3 metformin 500 mg tablet 750 mg PO BID Qty: 270 RF: 0 levothyroxine 100 mcg tablet 100 mcg PO DAILY Qty: 90 RF: 3 simvastatin 20 mg tablet 20 mg PO DAILY Qty: 90 RF: 3 gabapentin 300 mg capsule 300 mg PO DAILY Qty: 30 RF: 2 citalopram 20 mg tablet 30 mg PO HS RF: 0 multivitamin [Daily Multi-Vitamin] tablet 1 tab PO DAILY RF: 0 risperidone 1 mg tablet 1 mg PO HS RF: 0 Discharge Orders: Discharge Order (Routine); Ordered 08/24/21 Ordered By: Darrel Solitario Admission Data Admit Date/Time: 08/14/21 23:48 Attending Provider: Darrel Solitario Admit Provider: Ariela Schwartz Primary Care Provider: Drake Chilel Other Providers: Ariela Schwartz ; [facility] ; [facility] ; Rachel Ryan [facility] ; [facility] Other Interventions: Discharge Summary Assessment (RN) Last Done: 08/24/21 12:44 Coding Level of Care Code D/C DAY MANAGEMENT >30 MINS Diagnoses Urinary retention R33.9 UTI (urinary tract infection) N39.0 Electrolyte abnormality E87.8 Constipation K59.00 Generalized weakness R53.1 Memory change R41.3 Type 2 diabetes mellitus E11.9 Hypothyroidism E03.9 Hypertension I10 Dyslipidemia E78.5 Depression F32.9
== END 2021-08-24 13:51 | DRG 689 ==
LOC: ED 20:11 → 2N 23:48 → SUATTDRO 23:48 → 2N 08-15 00:45